=== PATIENT | male | born 1955 | race Caucasian/White ===

== ENCOUNTER 2018-03-12 08:12 | Inpatient (IN) ==
--- NOTE | 2018-03-12 08:44 | PROVIDER DOCUMENTATION ---
HPI-Respiratory General - General Chief Complaint: Shortness of Breath Stated Complaint: sob Time Seen by Provider: 03/12/18 08:23 Allergies/Adverse Reactions: Patient Allergies Allergy/AdvReac Type Severity Reaction Status Date / Time No Known Allergies Allergy Verified 03/12/18 09:16 Home Medications: Home Medication List Medication Instructions Recorded Confirmed Last Taken Type Acetaminophen [Tylenol] 500 mg PO Q4H 09/09/16 09/13/16 Unknown History Alprazolam [Xanax] 0.5 mg PO TID 09/09/16 09/13/16 09/12/16 20:00 History Aspirin EC 325 mg PO DAILY 09/09/16 09/13/16 09/12/16 09:00 History Bupropion HCl [Bupropion HCl Sr] 75 mg PO DAILY 09/09/16 09/13/16 09/12/16 08: 00 History Calcium Citrate/Vitamin D 1 each PO BID 09/09/16 09/13/16 09/12/16 16:00 History [Citracal + D] Carvedilol 6.25 mg PO BID 09/09/16 09/13/16 09/13/16 08:00 History Diltiazem C.d. [Cardizem C.d] 120 mg PO DAILY 09/09/16 09/13/16 09/13/16 08:00 History Divalproex [Depakote] 250 mg PO TID 09/09/16 09/13/16 09/12/16 20:00 History Docusate Sodium 100 mg PO BID 09/09/16 09/13/16 09/12/16 04:00 History Fluticasone/Salmeterol [Advair 1 each IH BID 09/09/16 09/13/16 09/12/16 17:00 History 250-50 Diskus] Furosemide 40 mg PO DAILY 09/09/16 09/13/16 09/12/16 08:00 History Hydrocodone/Acetaminophen [[place] 1 each PO Q6H 09/09/16 09/13/16 Unknown History 5-325 Tablet] Ipratropium/Albuterol Sulfate 3 ml IH BID 09/09/16 09/13/16 09/12/16 08:00 History [Iprat-Albut 0.5-3(2.5) mg/3 ml] Levothyroxine [Synthroid] 50 microgm PO DAILY 09/09/16 09/13/16 09/12/16 04:00 History Multivitamin,Therapeutic [Thera] 1 each PO DAILY 09/09/16 09/13/16 09/12/16 08: 00 History Potassium Chloride E.r. [Micro-K] 10 meq PO BID 09/09/16 09/13/16 09/12/16 16: 00 History Ranitidine [Zantac] 150 mg PO BID 09/09/16 09/13/16 09/12/16 20:00 History Thiamine [Vitamin B-1] 100 mg PO DAILY 09/09/16 09/13/16 09/12/16 09:00 History [place] Tar [T-Gel] 0 ml TP DAILY 09/13/16 09/13/16 09/11/16 History Ketoconazole 2% Cream [Nizoral 2% 1 applicatn TOP DAILY 09/13/16 09/13/16 09:00 History Cream] Triamcinolone 0.1% Oint [Kenalog 1 applicatn TOP DIRECTED 09/13/16 09/13/16 Unknown History 0.1% Ointment] Tuberculin,Purif.prot.deriv. 5 tub ID DIRECTED 09/13/16 09/13/16 09/10/16 15: 00 History [Tubersol] - History of Present Illness-Resp Nature of Presenting Problem: Pt sent to ER by EMS c/o SOB since this am. HP limited due to pt condition Quality of Pain: reports: fullness Severity in ED: reports: moderate Onset/Duration: reports: 1-3 hours ago Timing: reports: still present Exposure: reports: unknown cause Cough Quality/Degree: reports: no cough Episode Frequency: no prior episodes Current Respiratory Medication Therapy: Initiated see nurses note Modifying Factors: improves with: exertion Associated Symptoms: reports: shortness of breath Similar Symptoms Previously?: No Recently seen or treated by another doctor?: No Review of Systems - Adult - REVIEW OF SYSTEMS - ADULT ROS:: unobtainable per condition Constitutional: reports: see HPI Eyes: reports: see HPI Ears, Nose, Mouth & Throat: reports: see HPI Cardiovascular: reports: see HPI Respiratory: reports: see HPI, shortness of breath Gastrointestinal: reports: see HPI Genitourinary: reports: see HPI Musculoskeletal: reports: see HPI Integumentary: reports: see HPI Neurological: reports: see HPI Psychiatric: reports: see HPI Endocrine: reports: see HPI Hematologic/Lymphatic: reports: see HPI Allergic/Immunologic: reports: see HPI All Other Systems: Reviewed and Negative Past History - Adult - PAST MEDICAL HISTORY-ADULT Review of Records: reports: Nursing Assessment Review, Medications Reviewed, Social history reviewed & non-contributory. Major Childhood Illnesses: reports: denies history Cardiovascular: reports: cardiac disease, A-Fib Gastrointestinal: reports: denies history Obstetrical/Gynecological: reports: denies history Genitourinary: reports: denies history Musculoskeletal: reports: denies history Neurological: reports: denies history Psychiatric: reports: denies history Physical Exam-General - PHYSICAL EXAM-ADULT Initial Vital Signs Reviewed: Yes - CONSTITUTIONAL General Appearance: mild distress - EYES Eyes: PERRL/EOMI - HEAD, EARS, NOSE, MOUTH & THROAT HENMT: normocephalic/atraumatic, moist mucous membranes, normal ENT inspection - NECK Neck: non-tender, full range of motion, supple - RESPIRATORY Respiratory: chest non-tender, normal breath sounds, respiratory distress, decreased breath sounds, wheezing - CARDIOVASCULAR Cardiovascular: normal peripheral pulses, no edema, no gallop, tachycardia - GASTROINTESTINAL (ABDOMEN) Abdominal Exam: normal bowel sounds, non tender, soft - LYMPHATIC Lymphatic: no adenopathy - MUSCULOSKELETAL Back Exam: normal inspection, no CVA tenderness, no vertebral tenderness Progress - PLAN OF CARE/RESULTS Progress/Plan/Lab Results: Vital Signs - 8 hr 03/12/18 08:46 03/12/18 09:40 Temperature 98.6 F Pulse Rate 84 130 H Respiratory Rate 23 35 H Blood Pressure 107/78 O2 Sat by Pulse Oximetry 67 L 93 L Laboratory Results - last 24 hr 03/12/18 03/12/18 03/12/18 08:28 08:28 08:28 WBC 10.57 RBC 5.70 Hgb 16.6 Hct 55.8 H MCV 97.9 MCH 29.1 MCHC 29.7 L RDW Std Deviation 15.5 H Plt Count 146 MPV 10.8 H Immature Gran % (Auto) 1.2 H Neut % (Auto) 60.4 Lymph % (Auto) 16.6 L [place] % (Auto) 21.2 H Eos % (Auto) 0.4 Baso % (Auto) 0.2 Immature Gran # (Auto) 0.13 H Neut # (Auto) 6.39 Lymph # (Auto) 1.75 [place] # (Auto) 2.24 H Eos # (Auto) 0.04 Baso # (Auto) 0.02 PT 13.6 INR 0.96 PTT (Actin FS) 32.6 D-Dimer, Quantitative 0.46 Specimen Type Sample Site pH pCO2 pO2 HCO3 Base Excess Oxyhemoglobin ABG O2 Sat (Calculated) ABG O2 Saturation ABG Carboxyhemoglobin ABG Methemoglobin Frankie Test A-a O2 Difference Total Hemoglobin Lactate Blood Gas Modality FiO2 % Inspiratory BiPAP Expiratory BiPAP Sodium 134 L Potassium 6.4 H* Chloride 89 L Carbon Dioxide 33 Anion Gap 12 BUN 26 H Creatinine 1.7 H Estimated GFR/1.73 m2 41 BUN/Creatinine Ratio 15 Glucose 115 H POC Glucose Calculated Osmolality 274 Calcium 10.1 Total Bilirubin 0.48 AST 13 ALT 17 Alkaline Phosphatase 64 Creatine Kinase 32 Troponin T [id number] Pept Total Protein 6.6 Albumin 4.3 Globulin 2.3 Albumin/Globulin Ratio 1.9 Plasma Lactate Urine Source Urine Color Urine Turbidity Urine pH Ur Specific [place] Urine Protein Ur Glucose (Stick) Ur Ketones (Stick) Urine Blood Urine Nitrite Urine Bilirubin Urobilinogen Dipstick Urine Leukocytes Urine WBC (Auto) Urine RBC (Auto) U Epithel Cells (Auto) Urine Bacteria (Auto) Urine Opiates Screen Ur Oxycodone Screen Ur Methadone, Qual Ur Barbiturates Screen Valproic Acid Ur Phencyclidine Scrn Ur Amphetamines Screen U Benzodiazepines Scrn Urine Cocaine Screen U Cannabinoids Screen Plasma/Serum Ethyl Alc 03/12/18 03/12/18 03/12/18 08:28 08:28 08:28 WBC RBC Hgb Hct MCV MCH MCHC RDW Std Deviation Plt Count MPV Immature Gran % (Auto) Neut % (Auto) Lymph % (Auto) [place] % (Auto) Eos % (Auto) Baso % (Auto) Immature Gran # (Auto) Neut # (Auto) Lymph # (Auto) [place] # (Auto) Eos # (Auto) Baso # (Auto) PT INR PTT (Actin FS) D-Dimer, Quantitative Specimen Type Sample Site pH pCO2 pO2 HCO3 Base Excess Oxyhemoglobin ABG O2 Sat (Calculated) ABG O2 Saturation ABG Carboxyhemoglobin ABG Methemoglobin Frankie Test A-a O2 Difference Total Hemoglobin Lactate Blood Gas Modality FiO2 % Inspiratory BiPAP Expiratory BiPAP Sodium Potassium Chloride Carbon Dioxide Anion Gap BUN Creatinine Estimated GFR/1.73 m2 BUN/Creatinine Ratio Glucose POC Glucose Calculated Osmolality Calcium Total Bilirubin AST ALT Alkaline Phosphatase Creatine Kinase Troponin T < 0.010 [id number] Pept 2303 H Total Protein Albumin Globulin Albumin/Globulin Ratio Plasma Lactate < 0.2 L Urine Source Urine Color Urine Turbidity Urine pH Ur Specific [place] Urine Protein Ur Glucose (Stick) Ur Ketones (Stick) Urine Blood Urine Nitrite Urine Bilirubin Urobilinogen Dipstick Urine Leukocytes Urine WBC (Auto) Urine RBC (Auto) U Epithel Cells (Auto) Urine Bacteria (Auto) Urine Opiates Screen Ur Oxycodone Screen Ur Methadone, Qual Ur Barbiturates Screen Valproic Acid Ur Phencyclidine Scrn Ur Amphetamines Screen U Benzodiazepines Scrn Urine Cocaine Screen U Cannabinoids Screen Plasma/Serum Ethyl Alc 03/12/18 03/12/18 03/12/18 08:28 08:28 08:35 WBC RBC Hgb Hct MCV MCH MCHC RDW Std Deviation Plt Count MPV Immature Gran % (Auto) Neut % (Auto) Lymph % (Auto) [place] % (Auto) Eos % (Auto) Baso % (Auto) Immature Gran # (Auto) Neut # (Auto) Lymph # (Auto) [place] # (Auto) Eos # (Auto) Baso # (Auto) PT INR PTT (Actin FS) D-Dimer, Quantitative Specimen Type Sample Site pH pCO2 pO2 HCO3 Base Excess Oxyhemoglobin ABG O2 Sat (Calculated) ABG O2 Saturation ABG Carboxyhemoglobin ABG Methemoglobin Frankie Test A-a O2 Difference Total Hemoglobin Lactate Blood Gas Modality FiO2 % Inspiratory BiPAP Expiratory BiPAP Sodium Potassium Chloride Carbon Dioxide Anion Gap BUN Creatinine Estimated GFR/1.73 m2 BUN/Creatinine Ratio Glucose POC Glucose 119 H Calculated Osmolality Calcium Total Bilirubin AST ALT Alkaline Phosphatase Creatine Kinase Troponin T [id number] Pept Total Protein Albumin Globulin Albumin/Globulin Ratio Plasma Lactate Urine Source Urine Color Urine Turbidity Urine pH Ur Specific [place] Urine Protein Ur Glucose (Stick) Ur Ketones (Stick) Urine Blood Urine Nitrite Urine Bilirubin Urobilinogen Dipstick Urine Leukocytes Urine WBC (Auto) Urine RBC (Auto) U Epithel Cells (Auto) Urine Bacteria (Auto) Urine Opiates Screen Ur Oxycodone Screen Ur Methadone, Qual Ur Barbiturates Screen Valproic Acid 12.40 L Ur Phencyclidine Scrn Ur Amphetamines Screen U Benzodiazepines Scrn Urine Cocaine Screen U Cannabinoids Screen Plasma/Serum Ethyl Alc 03/12/18 03/12/18 03/12/18 08:44 09:10 10:05 WBC RBC Hgb Hct MCV MCH MCHC RDW Std Deviation Plt Count MPV Immature Gran % (Auto) Neut % (Auto) Lymph % (Auto) [place] % (Auto) Eos % (Auto) Baso % (Auto) Immature Gran # (Auto) Neut # (Auto) Lymph # (Auto) [place] # (Auto) Eos # (Auto) Baso # (Auto) PT INR PTT (Actin FS) D-Dimer, Quantitative Specimen Type ARTERIAL ARTERIAL Sample Site L RADIAL L RADIAL pH 7.13 L* 7.38 pCO2 116 H* 48 H pO2 106 H 40 L* HCO3 28.0 H 26.6 H Base Excess 4.1 H 2.7 Oxyhemoglobin 94.4 L 72.9 L* ABG O2 Sat (Calculated) 22.1 10.5 L ABG O2 Saturation 97.6 75.4 L ABG Carboxyhemoglobin 2.50 2.20 ABG Methemoglobin 0.9 1.1 Frankie Test YES YES A-a O2 Difference 462.0 50.0 Total Hemoglobin 16.6 10.2 L Lactate 0.80 0.90 Blood Gas Modality BI PAP ROOM AIR FiO2 % 100.0 21.0 Inspiratory BiPAP 20.0 Expiratory BiPAP 8.0 Sodium Potassium Chloride Carbon Dioxide Anion Gap BUN Creatinine Estimated GFR/1.73 m2 BUN/Creatinine Ratio Glucose POC Glucose Calculated Osmolality Calcium Total Bilirubin AST ALT Alkaline Phosphatase Creatine Kinase Troponin T [id number] Pept Total Protein Albumin Globulin Albumin/Globulin Ratio Plasma Lactate Urine Source CATH Urine Color YELLOW Urine Turbidity CLEAR Urine pH 5.0 Ur Specific [place] 1.021 Urine Protein 50 A Ur Glucose (Stick) NEGATIVE Ur Ketones (Stick) NEGATIVE Urine Blood NEGATIVE Urine Nitrite NEGATIVE Urine Bilirubin NEGATIVE Urobilinogen Dipstick 2 A Urine Leukocytes NEGATIVE Urine WBC (Auto) <10 Urine RBC (Auto) <10 U Epithel Cells (Auto) <10 Urine Bacteria (Auto) NEGATIVE Urine Opiates Screen Ur Oxycodone Screen Ur Methadone, Qual Ur Barbiturates Screen Valproic Acid Ur Phencyclidine Scrn Ur Amphetamines Screen U Benzodiazepines Scrn Urine Cocaine Screen U Cannabinoids Screen Plasma/Serum Ethyl Alc 03/12/18 10:05 WBC RBC Hgb Hct MCV MCH MCHC RDW Std Deviation Plt Count MPV Immature Gran % (Auto) Neut % (Auto) Lymph % (Auto) [place] % (Auto) Eos % (Auto) Baso % (Auto) Immature Gran # (Auto) Neut # (Auto) Lymph # (Auto) [place] # (Auto) Eos # (Auto) Baso # (Auto) PT INR PTT (Actin FS) D-Dimer, Quantitative Specimen Type Sample Site pH pCO2 pO2 HCO3 Base Excess Oxyhemoglobin ABG O2 Sat (Calculated) ABG O2 Saturation ABG Carboxyhemoglobin ABG Methemoglobin Frankie Test A-a O2 Difference Total Hemoglobin Lactate Blood Gas Modality FiO2 % Inspiratory BiPAP Expiratory BiPAP Sodium Potassium Chloride Carbon Dioxide Anion Gap BUN Creatinine Estimated GFR/1.73 m2 BUN/Creatinine Ratio Glucose POC Glucose Calculated Osmolality Calcium Total Bilirubin AST ALT Alkaline Phosphatase Creatine Kinase Troponin T [id number]-H-Coqwfaqbpxo Pept Total Protein Albumin Globulin Albumin/Globulin Ratio Plasma Lactate Urine Source Urine Color Urine Turbidity Urine pH Ur Specific [place] Urine Protein Ur Glucose (Stick) Ur Ketones (Stick) Urine Blood Urine Nitrite Urine Bilirubin Urobilinogen Dipstick Urine Leukocytes Urine WBC (Auto) Urine RBC (Auto) U Epithel Cells (Auto) Urine Bacteria (Auto) Urine Opiates Screen NONE DETECTED Ur Oxycodone Screen NONE DETECTED Ur Methadone, Qual NONE DETECTED Ur Barbiturates Screen NONE DETECTED Valproic Acid Ur Phencyclidine Scrn NONE DETECTED Ur Amphetamines Screen PRESUMPTIVE POSITIVE A U Benzodiazepines Scrn PRESUMPTIVE POSITIVE A Urine Cocaine Screen NONE DETECTED U Cannabinoids Screen NONE DETECTED Plasma/Serum Ethyl Alc Orders Category Date Time Status Cardiac Monitoring DIRECTED Care 03/12/18 08:32 Active [place] Cath Insertion ORDERED Care 03/12/18 10:13 Active IV Insertion ORDERED Care 03/12/18 08:32 Completed Notify MD of + Sepsis Screen NOW Care 03/12/18 08:32 Active Notify Physician As Ordered Care 03/12/18 08:32 Active cxr [CHEST-1 VIEW] [RAD] Stat Exams 03/12/18 08:26 Completed ABG [RESP] Routine Lab 03/12/18 08:44 Completed ABG [RESP] Routine Lab 03/12/18 09:10 Completed ALCOHOL BLOOD Stat Lab 03/12/18 08:28 Completed BLOOD CULTURE [BLDCUL] Stat Lab 03/12/18 08:55 Received CBC WITH ELECTRONIC DIFF [HEME] Stat Lab 03/12/18 08:28 Completed CK PROFILE [SP CHEM] Stat Lab 03/12/18 08:28 Completed COMPREHENSIVE METABOLIC PANEL [CHEM] Stat Lab 03/12/18 08:28 Completed D-DIMER [COAG] Stat Lab 03/12/18 08:28 Completed LACTATE, PLASMA [CHEM] Lab 03/12/18 11:27 Uncollected LACTATE, PLASMA [CHEM] Lab 03/12/18 14:27 Uncollected LACTATE, PLASMA [CHEM] Stat Lab 03/12/18 08:28 Completed PRO B-NATRIURETIC PEPTIDE Stat Lab 03/12/18 08:28 Completed PROTIME WITH INR [COAG] Stat Lab 03/12/18 08:28 Completed PTT [COAG] Stat Lab 03/12/18 08:28 Completed TROPONIN T Stat Lab 03/12/18 08:28 Completed URINALYSIS [URINALYSIS] Stat Lab 03/12/18 10:05 Completed URINE DRUG SCREEN Stat Lab 03/12/18 10:05 Completed VALPROIC ACID [TDM] Stat Lab 03/12/18 08:28 Completed Albuterol 2.5MG/Ipratrop 0.5MG [Duoneb (A & A)] Med 03/12/18 09:25 Discontinued 9 ml INH NOW ONE Calcium Chloride Syringe Med 03/12/18 09:35 Discontinued 1 gm IV NOW ONE Dextrose 50% Syringe [D50w Syringe] Med 03/12/18 09:35 Discontinued 50 ml IV NOW ONE Diltiazem [Cardizem] Med 03/12/18 08:45 Discontinued 20 mg IV NOW ONE Furosemide [Lasix] Med 03/12/18 09:17 Discontinued 80 mg IV NOW ONE Insulin Human Regular [Humulin R] Med 03/12/18 09:35 Discontinued 10 unit IV NOW ONE Naloxone [Narcan] Med 03/12/18 09:19 Discontinued 0.4 mg IV NOW ONE Sodium Bicarbonate 8.4% Med 03/12/18 09:35 Discontinued 50 meq IV NOW ONE Aerosol Treatments Routine Oth 03/12/18 09:25 Completed Aerosol Treatments Stat Oth 03/12/18 09:25 Completed BIPAP Stat Oth 03/12/18 09:17 Active Oxygen Device Stat Oth 03/12/18 08:32 Completed EKG [EKG] Stat Ther 03/12/18 08:28 Ordered EKG [EKG] Stat Ther 03/12/18 10:05 Ordered Transfer/Admit Order [TRANSFER] Routine Transfer 03/12/18 09:54 Ordered Maru LE: Second ABG improved pH as well as pCO2, when I examined patient 09:41 patient would respond to a rub and follow the command to take a deep breath, PERRL, will hold off intubation at this time, per info from ED Doc pt has been admitted. Result Diagrams: 03/12/18 08:28 03/12/18 08:28 - REASSESSMENT Reassessment #1 Time Reassessed: 09:36 Status: improving (Patient seen and examined by me. Case discussed with Dr. Luis at shift change. Patient has CHF/COPD exacerbation, pulmonary edema on CXR. Patient placed on bipap, but with CO2 113, may require intubation. Patient has CHF, given IV lasix. Patient has AFIB with RVR, given IV cardizem. Patient has hyperkalemia, given INSULIN/D50, Sodium Bicarb, calcium, and 3 duonebs.) - XRAY 1 XRAY Study: Chest Impression: Abnormal, See EMR Report (EXAM: CHEST-1 VIEW 03/12/2018 HISTORY: sob TECHNIQUE: AP portable at 0843 COMMENT: There are platelike atelectatic changes present in the lingula and ill-defined opacity in the right lower lobe and possibly the lower portion of the right upper lobe. IMPRESSION: Pulmonary edema and/or pneumonia. Atelectasis in the lingula. Electronically signed by Db Virgen 03/12/2018 8:59 AM 03/12/18 0859 Interpreting Physician: Db Virgen MD Dictated Date/Time: 03/12/18 0858 cc: Anshul Luis MD; Dalton Leon MD) - CONSULTS/PCP/HOSPITALIST Notification #1 *Consult/PCP/Hospitalist*: JAIDA Villarreal Time Discussed: 09:48 (admit to [facility]) Consult Disposition: Will see in ED - CHANGE OF SHIFT REPORT (ED Provider) Report Given and Care Transferred to:: Dr Paez Time of Transfer: 09:00 Items Pending: Labs, XRAY Results Departure - Departure Date of Disposition Decision: 03/12/18 Time of Disposition Decision: 09:48 DIAGNOSIS: COPD with exacerbation, Polypharmacy, Acute hyperkalemia Respiratory failure with hypoxia and hypercapnia Qualifiers: Chronicity: acute Qualified Code(s): J96.01 - Acute respiratory failure with hypoxia Acute exacerbation of CHF (congestive heart failure) Qualifiers: Heart failure type: combined systolic and diastolic Qualified Code(s): I50.43 - Acute on chronic combined systolic (congestive) and diastolic (congestive) heart failure Disposition: ADMITTED INPATIENT 09 Certified Medical Emergency: Emergent Condition: Critical - Critical Care Note This patient required my direct & personal management of CC.: Yes Total Time (mins): 45 Critical Care Statement: This patient required my direct personal management to treat or rule out processes, the absence of which, could potentiallly result in sudden, clinically significant life or limb threatening deterioration. Attestation - Physician/ CLARICE Attestation Patient care was provided by Advanced Practice Provider:: No The physician spent face to face time with patient:: Yes Advanced Practice Provider documentation review:: Supervising physician onsite and consulted in the evaluation and care of this patient. The physician did have a face to face encounter with the patient.
[2018-03-12] MEDS ORDERED: CARDIZEM IV ONE ×2 (08:45→19:12)
[2018-03-12 08:51] LABS: ALLEN TEST YES; BE 4.1 mmoll (-3.0-3.0); BLOOD TYPE ARTERIAL; METHB 0.9 % (0.0-1.5); O2(CT) 22.1 mL/dL (15.0-23.0); O2HB 94.4 % (95.0-99.0); PO2(98.6) 106 mmHg (60-100); SAMPLE BLOOD; SAO2 97.6 % (95.0-100.0); THB 16.6 g/dL (11.5-17.4)
[2018-03-12 08:55] LABS: PCO2(98.6) 116 mmHg (35-45); pH(98.6) 7.13 (7.35-7.45)
[2018-03-12 08:56] LABS: MODALITY BI PAP
--- NOTE | 2018-03-12 09:01 | Diag Imaging Result Doc PS360 ---
EXAM: CHEST-1 VIEW 03/12/2018 HISTORY: sob TECHNIQUE: AP portable at 0843 COMMENT: There are platelike atelectatic changes present in the lingula and ill-defined opacity in the right lower lobe and possibly the lower portion of the right upper lobe. IMPRESSION: Pulmonary edema and/or pneumonia. Atelectasis in the lingula. Electronically signed by Db Virgen 03/12/2018 8:59 AM
[2018-03-12 09:06] LABS: INR 0.96; PROTIME 13.6 Seconds (11.0-16.0); PTT 32.6 Seconds (22.3-41.8)
[2018-03-12 09:09] LABS: D-DIMER 0.46 ug/mLFEU (0.0-0.52)
[2018-03-12] MEDS ORDERED: LASIX IV ONE (09:17)
[2018-03-12] MEDS ORDERED: NARCAN IV ONE (09:19)
[2018-03-12] MEDS ORDERED: DUONEB (A & A) INH ONE (09:25)
[2018-03-12 09:26] LABS: ALB/GLOB RATIO 1.9; ALBUMIN 4.3 g/dL (3.5-5.0); CALCIUM 10.1 mg/dL (8.8-10.2); CREATININE 1.7 mg/dL (0.7-1.2); TOTAL BILIRUBIN 0.48 mg/dL (0.20-1.00); TOTAL PROTEIN 6.6 g/dL (6.3-8.3)
[2018-03-12 09:32] LABS: POTASSIUM 6.4 mmol/L (3.5-5.1)
[2018-03-12 09:35] LABS: BASO# 0.02 X1000 (0.0-0.2); BASO% 0.2 % (0.0-0.8); EOS# 0.04 X1000 (0.0-0.7); EOS% 0.4 % (0.0-10.0); HEMATOCRIT 55.8 % (42.0-52.0); HEMOGLOBIN 16.6 g/dL (14.0-18.0); IMM GRAN# 0.13 X1000 (0.0-0.04); IMM GRAN% 1.2 % (0.0-0.5); LYMPH# 1.75 X1000 (1.2-3.4); LYMPH% 16.6 % (20.5-51.1); MCH 29.1 PG (27-31); MCHC 29.7 g/dL (33-37); MCV 97.9 FL (81-99); MONO# 2.24 X1000 (0.11-0.59); MONO% 21.2 % (1.7-9.3); MPV 10.8 FL (7.4-10.4); NEUT# 6.39 X1000 (1.4-6.5); NEUT% 60.4 % (42.2-75.2); PLT 146 X1000 (130-400); RDW 15.5 % (11.5-14.5); WBC 10.57 X1000 (4.8-10.8)
[2018-03-12] MEDS ORDERED: D50W SYRINGE IV ONE ×2 (09:35→15:12)
[2018-03-12] MEDS ORDERED: HUMULIN R IV ONE ×2 (09:35→15:11)
[2018-03-12] MEDS ORDERED: CALCIUM CHLORIDE SYRINGE IV ONE (09:35)
[2018-03-12] MEDS ORDERED: SODIUM BICARBONATE 8.4% IV ONE (09:35)
[2018-03-12 10:22] LABS: URINE SOURCE CATH
[2018-03-12 10:25] LABS: BILIRUBIN URINE NEGATIVE (NEGATIVE); BLOOD URINE NEGATIVE (NEGATIVE); COLOR YELLOW; GLUCOSE URINE NEGATIVE (NEGATIVE); KETONE URINE NEGATIVE (NEGATIVE); LEUKOCYTES URINE NEGATIVE (NEGATIVE); NITRITE URINE NEGATIVE (NEGATIVE); PROTEIN URINE 50 mg/dL (NEGATIVE); SP GRAVITY URINE 1.021; TURBIDITY URINE CLEAR (CLEAR); UR EPITHELIAL CELLS <10 /HPF (<10); URINE BACTERIA NEGATIVE /HPF; URINE RBC <10 /HPF (<10); URINE WBC <10 /HPF (<10); UROBILINOGEN URINE 2 mg/dL (NORMAL)
[2018-03-12 10:49] LABS: UR AMPHETAMINES QUAL PRESUMPTIVE POSITIVE (NONE DETECT); UR BARBITUATES QUAL NONE DETECTED (NONE DETECT); UR BENZODIAZEPIN QUAL PRESUMPTIVE POSITIVE (NONE DETECT); UR CANNABINOIDS QUAL NONE DETECTED (NONE DETECT); UR COCAINE QUAL NONE DETECTED (NONE DETECT); UR METHADONE QUAL NONE DETECTED (NONE DETECT); UR OPIATES QUAL NONE DETECTED (NONE DETECT); UR OXYCODONE QUAL NONE DETECTED (NONE DETECT); UR PCP QUAL NONE DETECTED (NONE DETECT)
[2018-03-12] MEDS ORDERED: DUONEB (A & A) INH PRN (11:06)
[2018-03-12] MEDS ORDERED: LEVAQUIN 750 MG/D5W 750 MG/150 ML IVPB IV SCH (11:06)
[2018-03-12] MEDS ORDERED: NEO-SYNEPHRINE 50 MG in NS 250 ML IV SCH (11:15)
[2018-03-12] MEDS: DUONEB (A & A) INH SCH ×4 (11:45→23:30)
[2018-03-12] MEDS ORDERED: VANCOMYCIN IV PER PHARMACY MISC SCH (11:45)
[2018-03-12] MEDS ORDERED: KLOR-CON PO ONE (12:16)
[2018-03-12] MEDS ORDERED: ROMAZICON IV ONE (12:17)
[2018-03-12] MEDS: HEPARIN SUBQ SCH (12:22)
[2018-03-12 12:36] LABS: ALLEN TEST YES; BE 3.3 mmoll (-3.0-3.0); BLOOD TYPE ARTERIAL; HCO3-(ACT) 27.2 mmoll (20.0-26.0); METHB 0.8 % (0.0-1.5); O2HB 90.1 % (95.0-99.0); PO2(98.6) 72 mmHg (60-100); SAMPLE BLOOD; SAO2 93.2 % (95.0-100.0); THB 16.6 g/dL (11.5-17.4)
[2018-03-12 12:39] LABS: PCO2(98.6) 113 mmHg (35-45); pH(98.6) 7.13 (7.35-7.45)
[2018-03-12 12:40] LABS: MODALITY BI PAP
--- NOTE | 2018-03-12 12:51 | HISTORY AND PHYSICAL ---
PRIMARY CARE PHYSICIAN: Dr. Leon at [facility]. CHIEF COMPLAINT: Per medical record report: Lethargy, increased temperature, and decreased O2 saturation. Temperature at the [facility] was 99, O2 saturation was 44%. HISTORY OF PRESENT ILLNESS: Mr. Odonnell is a 63-year-old male. His medical history is obtained from [facility], EMR. 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 According to [facility] records, the patient had a temperature 99.9 degrees, O2 saturation 44%, his heart rate was 122, respirations were 28, blood pressure was 118/52. Also per the records, the patient is always confused. He is a wanderer, needs help with dressing as well as to go to the bathroom, needs help with bathing. The patient was brought in by EMS. He was on 3 L nasal cannula. His O2 saturation was 67%. He was immediately placed on BiPAP. His ABGs were acidotic, 7.13. His CO2 was 116. He was hyperkalemic at 6.4 with an acute kidney injury with a BUN of 26 and creatinine 1.7 and elevated proBNP. Urinalysis was negative. Valproic acid level was 12.40. Positive for amphetamines and benzodiazepines. Urine was negative for bacteria. We will admit him to the ICU with a pulmonology consult. We are rechecking ABGs for possible intubation. The patient remains obtunded, minimally responsive to painful stimuli. He does not follow any commands. No family at the bedside. Blood pressures have fallen into the 60s, was started on Clovis- Synephrine drip. He has not yet received his IV Lasix and is on hold until his blood pressure can improve. He was also found to be in atrial fibrillation with RVR. He was given 1 dose of IV Cardizem. We will consult Cardiology as well. REVIEW OF SYSTEMS: A 14 point review of systems hard to obtain secondary to patient's condition. PAST MEDICAL HISTORY: Please see HPI. PAST SURGICAL HISTORY: He has had excision of squamous cell cancer by Dr. Tran in 2017 to his right biceps and left scapula. Other history unknown. FAMILY HISTORY: Unknown. SOCIAL HISTORY: Patient lives at [facility]. Appears to be in long-term care. In his [facility] paperwork, responsible libertarian is Mary Snowden, phone number of [phone]. CODE STATUS: DNR level 1. We will confirm this with family. HOME MEDICATIONS: Per [facility] report: 1. Levothyroxine 75 mcg p.o. daily. 2. Thiamin 100 mg p.o. daily. 3. Aspirin 325 mg tablet p.o. daily for atrial fibrillation. 4. Ketoconazole 2% cream to face if scaling is present. 5. Ferrous sulfate 325 mg p.o. daily. 6. Lisinopril 10 mg p.o. daily. 7. vitamin p.o. every day secondary to macular degeneration. 8. Systolic heart failure, Lasix 60 mg daily. 9. Bupropion 75 mg daily. 10. Prednisone 5 mg 1 tablet daily with two 1 mg tablets, equal a total of 7 mg for emphysema. 11. Diltiazem CD 120 mg daily for atrial flutter. 12. Citracal, vitamin D plus magnesium by mouth twice daily. 13. Advair Diskus 1 puff twice daily. 14. Depakote 225 mg tablet by mouth at bedtime. 15. Melatonin 3 mg at bedtime for sleep. 16. Carvedilol 6.25 mg tablet twice daily. 17. Potassium chloride 10 mEq p.o. by mouth 3 times a day. 18. Ipratropium albuterol inhaler 4 times a day. 19. Xanax 0.5 mg 1 by mouth p.o. 3 times a day for restlessness and agitation. 20. GERD. The patient is on Zantac 150 mg p.o. daily. 21. Tylenol. 22. Selsun Blue shampoo. PHYSICAL EXAMINATION: VITAL SIGNS: Temperature 98.6 degrees, heart rate 130, respirations 35, O2 is 93% on BiPAP, blood pressure 107/78. GENERAL: Mr. Odonnell is lying on the stretcher on BiPAP. He is obtunded. He does moan to painful stimuli. He does not follow commands, answer any questions. HEENT: Atraumatic, normocephalic. PERRL. NECK: Thick, unable to assess JVD. CARDIOVASCULAR: Irregular rhythm. Could not appreciate any murmurs, gallops, or rubs. RESPIRATORY: Lung sounds were decreased throughout all lung pierce. GASTROINTESTINAL: Soft, nontender, nondistended. Positive bowel sounds x4 quadrants. EXTREMITIES: Dry and flaky, somewhat red. He does have an open, scabbed over wound to his left lower extremity. NEUROLOGIC: The patient is obtunded. He does minimally respond to painful stimuli. DIAGNOSTIC DATA: Chest x-ray shows pulmonary edema and/or pneumonia, atelectasis in the lingula. LABORATORY DATA: White count 10, hemoglobin and hematocrit of 16 and 55, platelet count 146,000. Initial ABG showed a pH of 7.13, pCO2 of 116, pO2 of 106, bicarb 28, base excess of 4.1, O2 saturation 97%. Sodium 134, potassium 6.4, BUN 26, creatinine 1.7, blood glucose is 115. Troponin less than 0.010. ProBNP 2303. Plasma lactate was less than 0.2. Urinalysis was negative. Valproic acid 12.40. Positive for amphetamines, positive for benzodiazepine. ASSESSMENT AND PLAN: 1. Acute hypercarbic hypoxic respiratory failure. Patient was placed on BiPAP. We are awaiting repeat ABG. Will consult Pulmonology. Continue with bronchodilators. 2. Possible mix of metabolic and toxic encephalopathy. We will continue to hold any sedating medications. We will continue with his aggressive pulmonary toilet. Continue with BiPAP. 3. Congestive heart failure, presumed systolic. I will check an echocardiogram. We will give the IV Lasix when his blood pressure has improved. 4. Hypotension. Will start Clovis-Synephrine. 5. Questionable pneumonia on chest x-ray. We will go ahead and initiate IV antibiotics. Will cover with broad-spectrum since the patient is a resident at [facility]. 6. Hyperkalemia. He is being given treatment per protocol. 7. Acute kidney injury. We will continue with IV fluids cautiously, hold any nephrotoxic drugs, and dose appropriately. Pain. 8. The patient has a scabbed-over wound to his left lower extremity with bilateral lower extremity redness. We will continue with antibiotic for probable cellulitis. Further recommendation to follow physician evaluation, laboratory, and diagnostic data. addendum; SPOKE WITH MARY SNOWDEN PATIENT'S SPONSOR, HE IS A DNR1. WE WILL CONSULT PALLATIVE CARE FOR TOMORROW FOR GOC. Dictated by JAIDA Walsh for Herrera Peña MD cc: MD Dr. Rika Youngblood MD Patient seen and evaluated by me. He is presenting with altered mental state related to CO2 retention. I agree with the assessment and plan of the MEMBER SERVICE REPRESENTATIVE. Dr. Peña. [facility]
[2018-03-12] MEDS: PROTONIX IV SCH (13:53)
[2018-03-12] MEDS: ROCEPHIN 1 GM in NS 50 ML IV SCH (13:54)
[2018-03-12 14:23] LABS: BASO# 0.11 X1000 (0.0-0.2); BASO% 0.9 % (0.0-0.8); EOS# 0.04 X1000 (0.0-0.7); EOS% 0.3 % (0.0-10.0); HEMATOCRIT 57.3 % (42.0-52.0); HEMOGLOBIN 17.2 g/dL (14.0-18.0); IMM GRAN# 0.16 X1000 (0.0-0.04); IMM GRAN% 1.3 % (0.0-0.5); LYMPH# 1.58 X1000 (1.2-3.4); MCH 30.3 PG (27-31); MCV 101.1 FL (81-99); MONO# 3.26 X1000 (0.11-0.59); MONO% 26.8 % (1.7-9.3); MPV 10.9 FL (7.4-10.4); NEUT# 7.03 X1000 (1.4-6.5); NEUT% 57.7 % (42.2-75.2); PLT 138 X1000 (130-400); RBC 5.67 XMIL (4.7-6.1); WBC 12.18 X1000 (4.8-10.8)
[2018-03-12 14:37] LABS: T4 7.25 ug/dL (4.60-12.00); TSH 0.85 uIUmL (0.27-4.20)
[2018-03-12 14:38] LABS: LYMPHS 12 % (21-51); MONO 19 % (1-9); SEGS 69 % (42-75)
[2018-03-12 14:40] LABS: CREATININE 1.8 mg/dL (0.7-1.2); MAGNESIUM 2.1 mg/dL (1.5-2.7); PHOSPHORUS 6.5 mg/dL (2.7-4.5)
[2018-03-12] MEDS ORDERED: ALBUTEROL 0.5% INH CONC FOR HYPERKALEMIA INH ONE (15:06)
[2018-03-12] MEDS ORDERED: CALCIUM GLUCONATE IV PUSH ONE (15:11)
[2018-03-12] MEDS ORDERED: KAYEXALATE PR ONE ×2 (15:12→15:30)
[2018-03-12] MEDS: ZOSYN 2.25 GM in NS 50 ML IV SCH ×2 (16:31→23:30)
[2018-03-12] MEDS ORDERED: VANCOMYCIN 2,250 MG in NS 500 ML IV ONE (17:00)
[2018-03-12] MEDS ORDERED: LOPRESSOR IV ONE (17:04)
[2018-03-12] MEDS ORDERED: CARDIZEM 100 MG/NS 100 MG/100 ML IVPB IV SCH (19:15)
[2018-03-12 19:39] LABS: CK INDEX 0.8 (0.0-2.5); CK-MB 3.51 ng/mL (0.0-5.0)
--- NOTE | 2018-03-12 19:40 | CONSULTATION ---
DATE OF CONSULTATION: 03/12/2018 IMPRESSION: 1. Atrial fibrillation with rapid ventricular rate. Atrial fibrillation is reportedly chronic. Suspect elevated heart rate related to acute illness. 2. Hypercapnic/hypoxemic respiratory failure. I suspect this is largely related to severe COPD exacerbation. 3. Acute on chronic heart failure. 4. Status post previous cerebrovascular accident with left-sided weakness. 5. Encephalopathy with history of dementia. 6. Hypertension. 7. Patient is do not resuscitate level 1. RECOMMENDATIONS: 1. Initiate IV metoprolol on an as needed basis to prevent excessive tachycardia. 2. Start low-dose IV Cardizem. 3. Diuresis as you are doing. 4. Supportive care with BiPAP to provide pulmonary support within limits of patient's wishes. The patient is a DNR level 1. 5. His prognosis appears to be poor. HISTORY: This 63-year-old white male with past history of atrial fibrillation, hypertension, congestive heart failure, severe COPD with pulmonary fibrosis, dementia and previous cerebrovascular accident resulting in left-sided weakness was brought from the [facility] in respiratory failure. He is very lethargic and unable to give any history. He has been found to have severe hypercapnia with respiratory acidosis as well as hypoxemia. As he is he is a DNR he is being treated with BiPAP for pulmonary support. Pulmonary edema is also suggested and diuresis has been initiated. Regarding his atrial fibrillation, he has received some intravenous Cardizem but is not currently on a drip. He has also been administered some intravenous metoprolol as needed. He has been a DNR level 1 prior to his present admission and this was on his record at the detention. PAST MEDICAL HISTORY: 1. Atrial fibrillation. 2. Congestive heart failure. 3. Severe COPD with pulmonary fibrosis. 4. Dementia. 5. Status post cerebrovascular accident with left-sided weakness. 6. Hypertension. 7. Ischemic heart disease. 8. Squamous cell carcinoma in involving the skin of the right upper limb and left shoulder which was subsequently removed. ALLERGIES: No known drug allergies. MEDICATIONS PRIOR TO ADMISSION: As listed. SOCIAL HISTORY: He has been a resident for sometime at [facility]. He does not smoke. There is a past history of significant alcohol use. FAMILY HISTORY: Not available. REVIEW OF SYSTEMS: Not obtainable given patient's encephalopathy. PHYSICAL EXAMINATION: General: This is a overweight, older middle-aged male, in no obvious distress who is lethargic on BiPAP. He appears older than stated age. Vital signs: Blood pressure 141/93, heart rate 118 with ECG monitor showing atrial fibrillation. Oxygen saturation 95%. HEENT: Mucous membranes are dry. Neck: Supple without discernible jugular distention. There are no carotid bruits. Chest: Auscultation chest reveals diminished air movement bilaterally. Coarse breath sounds demonstrated bilaterally. Cardiac Exam: Reveals an irregular rate and rhythm without appreciable murmur or gallop. Abdomen: Soft. Bowel sounds audible. Extremities: Demonstrate mild edema. Neurologic: Reveals patient to be unresponsive to verbal or physical stimuli. DATA: ECG shows atrial fibrillation with rapid ventricular rate. LABORATORY DATA: Includes a white blood cell count 12.18, hematocrit 57.3, hemoglobin 17.2, platelet count 138,000. Pro time 13.6, INR 0.96. PTT 32.6. Arterial blood gas with a pH of 7.13, pCO2 of 113, PO2 of 72, bicarb 27.2 on BiPAP with FiO2 of 100%. Sodium 135, potassium 6.0, chloride 91, carbon dioxide 27, BUN 20, creatinine 1.8, glucose 103. Troponin T less than 0.01. Pro-B natriuretic peptide level 2303. cc: Thierry Taylor MD
--- NOTE | 2018-03-12 19:59 | CONSULTATION ---
DATE OF CONSULTATION: 03/12/2018 CHIEF COMPLAINT: Lethargy. HISTORY OF PRESENT ILLNESS: This is a 63-year-old male who resides at [facility], patient was brought to the emergency department via ambulance service today. During assessment patient is unable to be aroused, he is on BiPAP therapy. X- ray revealed pulmonary edema and/or pneumonia. PAST MEDICAL HISTORY: Per shelter records atrial fibrillation, unspecified encephalopathy, hemiplegia, history of AL, iron deficiency anemia, sleep disorder, pulmonary fibrosis, CHF, emphysema, squamous cell carcinoma and GERD. FAMILY HISTORY: Unknown. HOME MEDICATIONS: See reconciliation list. SOCIAL HISTORY: The patient lives at [facility]. REVIEW OF SYSTEMS: ASSESSMENT: General: This is a 63-year-old male arousable BiPAP in place. Tachycardic. Vital Signs: Pulse rate 123, respiratory rate 26, blood pressure 134/94, O2 saturation 92. HEENT: Head is atraumatic, normocephalic. PERRLA noted. Neck: Is thick and supple. Cardiovascular: Irregular rhythm. No gallops rubs or murmurs noted. Respiratory: Lung sounds diminished throughout all lung pierce. GI: Soft, distended, bowel sounds present x4 quadrants. Neurologic: Patient is obtunded, it is minimally respond to painful stimuli. DIAGNOSTIC DATA: X-ray revealed pulmonary edema and/or pneumonia, atelectasis in the lingula. LABORATORY DATA: White blood cells 12.18, red blood cells 5.67, hemoglobin 17.2, hematocrit 57.3, PT 13.6, INR 0.96, PTT 32.6, D-dimer 0.46, pH 7.13, pCO2 113, PO2 72, HC03 27.2, base excess 3.3, oxyhemoglobin 90.1, sodium 135, potassium 6.0, chloride 91, BUN 28, creatinine 1.8, glucose 103, calcium 11.0, phosphorus is 6.5, pro-BNP 2303. ASSESSMENT AND PLAN: 1. Acute hypercapnic respiratory failure. Continue BiPAP and will continue to monitor blood gases. 2. Probable pneumonia. Continue antibiotics bronchodilators as prescribed. 3. Hypokalemia. Continue treatment protocol and continue to monitor. 4. Continue GI prophylaxis with Protonix IV. Thank you for the courtesy of this consult. Dictated by JAIDA Mclain for Solange Meléndez MD cc: JAIDA Mclain MD [facility]
[2018-03-12] MEDS: LASIX IV SCH (21:00)
[2018-03-13] MEDS: HEPARIN SUBQ SCH ×2 (00:22→11:14)
[2018-03-13] MEDS ORDERED: ATIVAN IV ONE (00:43)
[2018-03-13] MEDS ORDERED: ATIVAN ONE (00:48)
[2018-03-13 01:55] LABS: UR CREAT RANDOM 109.3 mg/dL (14-26); UR PROT RANDOM 41.7 mg/dL
[2018-03-13] MEDS: DUONEB (A & A) INH SCH ×6 (03:30→23:00)
[2018-03-13 04:10] LABS: CK INDEX 0.4 (0.0-2.5); CK-MB 6.14 ng/mL (0.0-5.0)
[2018-03-13 04:27] LABS: ALLEN TEST YES; BE 9.2 mmoll (-3.0-3.0); BLOOD TYPE ARTERIAL; HCO3-(ACT) 31.9 mmoll (20.0-26.0); O2(CT) 21.4 mL/dL (15.0-23.0); O2HB 93.1 % (95.0-99.0); PO2(98.6) 68 mmHg (60-100); SAMPLE BLOOD; SAO2 95.8 % (95.0-100.0); THB 16.4 g/dL (11.5-17.4)
[2018-03-13] MEDS: ZOSYN 2.25 GM in NS 50 ML IV SCH ×3 (04:47→21:26)
[2018-03-13 04:49] LABS: MODALITY BI PAP; PCO2(98.6) 81 mmHg (35-45)
--- NOTE | 2018-03-13 06:06 | Diag Imaging Result Doc PS360 ---
EXAM: CHEST-PORTABLE HISTORY: chf/resp failure TECHNIQUE: Chest single view COMPARISON: 03/12/2018 FINDINGS: The lungs are well expanded. The heart is not enlarged. The vessels are distended. There are no infiltrates. No effusion identified. IMPRESSION: Persistent pulmonary edema. Electronically signed by Noel Caldera 03/13/2018 6:03 AM
[2018-03-13 06:31] LABS: AGAP 12; ALBUMIN 3.5 g/dL (3.5-5.0); BUN 23 mg/dL (8-22); CALCIUM 9.8 mg/dL (8.8-10.2); CHLORIDE 94 mmol/L (98-107); COSMO 289; ESTIMATED GFR > 60; GLUCOSE 99 mg/dL (70-104); PHOSPHORUS 3.8 mg/dL (2.7-4.5); POTASSIUM 5.8 mmol/L (3.5-5.1); SODIUM 143 mmol/L (136-145); TCO2 37 mmol/L (25-35)
[2018-03-13 06:33] LABS: AGAP 12; BUN 22 mg/dL (8-22); CALCIUM 9.8 mg/dL (8.8-10.2); CHLORIDE 93 mmol/L (98-107); COSMO 285; CREATININE 1.1 mg/dL (0.7-1.2); ESTIMATED GFR > 60; GLUCOSE 101 mg/dL (70-104); POTASSIUM 5.6 mmol/L (3.5-5.1); SODIUM 141 mmol/L (136-145); TCO2 36 mmol/L (25-35)
--- NOTE | 2018-03-13 07:30 | EKG Report ---
Test Performed on : 03/13/2018 06:44:48 AM Test Reason : Heart Failure Admission Blood Pressure : / mmHG Vent. Rate : 114 BPM Atrial Rate : 053 BPM P-R Int : 000 ms QRS Dur : 072 ms QT Int : 272 ms P-R-T Axes : 000 049 078 degrees QTc Int : 374 ms Atrial fibrillation. with rapid ventricular response. Abnormal ECG When compared with ECG of 12-MAR-2018 08:23, (Unconfirmed) Nonspecific T wave abnormality now evident in Lateral leads Confirmed by Waldo EL, Jey Schneider ([id number]) on 03/13/2018 3:56:23 PM
--- NOTE | 2018-03-13 08:23 | EKG Report ---
Test Performed on : 03/12/2018 08:23:25 AM Test Reason : sob Blood Pressure : / mmHG Vent. Rate : 111 BPM Atrial Rate : 108 BPM P-R Int : 000 ms QRS Dur : 070 ms QT Int : 286 ms P-R-T Axes : 000 099 060 degrees QTc Int : 388 ms Atrial fibrillation. with rapid ventricular response. Rightward axis Low voltage QRS Abnormal ECG When compared with ECG of 13-SEP-2016 09:04, Nonspecific T wave abnormality no longer evident in Inferior leads Nonspecific T wave abnormality no longer evident in Lateral leads Unconfirmed Result
--- NOTE | 2018-03-13 09:06 | ECHO REPORT ---
ORDER DATE: 03/12/2018 SUMMARY: 1. Very technically difficult study for interpretation due to very limited acoustic window quality. Despite intravenous echo contrast agent, Definity, utilized to enhance endocardial definition, stage remained technically difficult. 2. Aortic valve is without gross structural abnormality. Mitral and tricuspid valves are without gross structural abnormality. Pulmonic valve is without gross structural abnormality. Pulmonic valve was not seen. Aortic root is grossly normal in size. 3. Grossly normal left ventricular chamber size suggested. Estimated left ventricular ejection fraction appears to be at least 55%. No obvious wall motion abnormality can be appreciated. Left atrium is grossly normal in size. Right atrium is not well imaged. The right ventricle appears at least borderline enlarged. 4. No pericardial effusion. 5. Appearance of inferior vena cava suggests normal central venous pressure. 6. Atrial fibrillation during study with heart rate 110 to 120 beats per minute. cc: Thierry Taylor MD
--- NOTE | 2018-03-13 09:56 | Diag Imaging Result Doc PS360 ---
US RENAL 2 (RETROPER) COMPLETE - 03/13/2018 INDICATION: decreased renal function TECHNIQUE: COMPARISON: None FINDINGS: The kidneys are normal. The urinary bladder is decompressed by a Guillen catheter. There is no mass or cyst. No hydronephrosis. The right kidney measures 9.9 x 5.1 x 5 cm. The left kidney measures 9.6 x 5 x 4.9 cm. IMPRESSION: Negative exam. Electronically signed by Nikita Finch 03/13/2018 9:54 AM
[2018-03-13] MEDS: LASIX IV SCH ×2 (11:20→21:26)
[2018-03-13] MEDS: ROCEPHIN 1 GM in NS 50 ML IV SCH (11:23)
[2018-03-13] MEDS ORDERED: TYLENOL PR PRN (13:32)
[2018-03-13] MEDS ORDERED: SODIUM BICARBONATE 8.4% IV PUSH ONE (13:33)
[2018-03-13] MEDS ORDERED: CALCIUM GLUCONATE 1 GM in NS 50 ML IV ONE (13:33)
[2018-03-13] MEDS ORDERED: D50W SYRINGE IV ONE (13:34)
[2018-03-13] MEDS ORDERED: HUMULIN R IV ONE (13:35)
[2018-03-13] MEDS: PROTONIX IV SCH (13:44)
[2018-03-13] MEDS: MYCOSTATIN POWDER TOP SCH ×2 (13:48→21:27)
--- NOTE | 2018-03-13 14:18 | PROGRESS NOTE ---
DATE: 03/13/2018 SUBJECTIVE: The patient resting comfortably in bed. He does have an oxygen mask in place. OBJECTIVE: Vital Signs: Pulse 123, respiratory rate 31, blood pressure 132/75, and oxygen saturation is 91%. HEENT: Atraumatic, normocephalic. Cardiovascular: S1, S2. Respiratory: No rales or rhonchi noted. Abdomen: Full. Nontender. No masses felt. Extremities: Erythematous changes in both lower extremities. Central nervous system: The patient is awake and probably confused. No obvious focal deficit noted. LABORATORY: ABG 7.3/81/68/95.8 percent. Sodium is 143. Potassium 5.8, chloride 94, bicarb 37, BUN is 23, and creatinine is 1.0. X-ray of chest shows evidence of pulmonary edema. No infiltrates. ASSESSMENT AND PLAN: 1. Acute hypercapnic respiratory failure. Maintain patient on BiPAP. Follow up on patient's clinical progression including chest x-ray as well as arterial blood gases. 2. Pulmonary edema. We will maintain patient on diuretics. Monitor intakes and outputs, as well as daily weights. Follow up on echo of the heart. 3. Hyperkalemia. We will repeat cocktail of sodium bicarbonate, calcium gluconate, along with D50 and also regular insulin. Follow up on potassium level. 4. Acute kidney injury. This seemed to have improved. We will continue to follow up on patient's renal function and avoid nephrotoxic agents. 5. Bilateral lower extremity cellulitis. Obtain wound culture. Maintain patient on antibiotics. 6. Probable pneumonia. I do not see any evidence of pneumonia on the patient's chest x-ray report. 7. Deep vein thrombosis prophylaxis. Lovenox. 8. Gastrointestinal prophylaxis. Proton pump inhibitor. cc: Herrera Peña MD
[2018-03-13] MEDS ORDERED: LOVENOX SUBQ SCH (14:30)
--- NOTE | 2018-03-13 14:37 | PROGRESS NOTE ---
DATE: 03/13/2018 SUBJECTIVE: Patient is more responsive this morning and making better respiratory effort. He responds to verbal inquiries with responses that are somewhat difficult to understand. OBJECTIVE: Vital Signs: Blood pressure 139/85, heart rate 110 and irregular with ECG monitor showing atrial fibrillation, oxygen saturation 96% on BiPAP. Chest: Auscultation of the chest reveals better air movement this morning. Chest is clear to auscultation anteriorly. Cardiac: Reveals an irregular rate and rhythm without appreciable murmur or gallop. There is mild peripheral edema. IMAGING: Echocardiography is very difficult for interpretation but indicates grossly normal left ventricular ejection fraction. There is subjective enlarged on the right ventricle. LABORATORY DATA: From this morning includes sodium 143, potassium 5.8, chloride 94, carbon dioxide 37, BUN 23, creatinine 1.0, glucose 99. Follow-up troponin less than 0.01. Arterial blood gas with a pH of 7.3, pCO2 of 81, PO2 of 68 on BiPAP with 100% oxygen. IMPRESSIONS: 1. Atrial fibrillation with moderate tachycardia. Patient apparently has chronic atrial fibrillation. Suspect heart rate elevated due to acute illness. Heart rate better controlled. 2. Hypercapnic/hypoxemic respiratory failure. 3. Acute on chronic congestive heart failure with preserved left ventricular ejection fraction. Suspect a great deal of this may be related to acute on chronic right-sided heart failure. 4. Status post previous cerebrovascular accident with left-sided weakness. 5. Encephalopathy with history of dementia. 6. Hypertension. 7. Patient is do not resuscitate level 1. RECOMMENDATIONS: 1. Continue low-dose IV Cardizem as tolerated. 2. Continue p.r.n. IV metoprolol. 3. Continue diuresis and supportive care. cc: Thierry Taylor MD
[2018-03-13] MEDS: LEVAQUIN 500 MG/D5W 500 MG/100 ML IVPB IV SCH (14:47)
[2018-03-13] MEDS: LOVENOX SUBQ SCH (15:01)
[2018-03-13] MEDS ORDERED: VANCOMYCIN 2 GM in NS 500 ML IV SCH (18:00)
--- NOTE | 2018-03-13 19:33 | NEPHROLOGY CONSULTATION ---
DATE: 03/13/2018 DATE OF CONSULT: 03/13/2018. REASON FOR ADMISSION: Increased lethargy, altered mental status, with decreased oxygenation. REASON FOR CONSULT: Acute kidney injury. CONSULTING PHYSICIAN: Dr. Peña per Cherelle Marcial NP. HISTORY OF PRESENT ILLNESS: Mr. Odonnell is a 63-year-old white male who is currently a resident of [facility]. His sister is at his bedside and states that her brother was called yesterday morning stating that he had altered mental status. He has unspecified encephalopathy with early onset of dementia. He is hemiplegic, affecting the left and nondominant side. 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 The patient is mostly bed ridden according to the family member. According to the [facility] records, it states that his temperature yesterday morning was 99.9, O2 sats were 44%. His heart rate was 122, blood pressure was stable at 118/52. He was transferred to [facility] Emergency Department per the EMS. En route, they had him on 3 L nasal cannula. Immediately he was placed on BiPAP. In the emergency room, he was hyperkalemic with a potassium of 6.4 and acute kidney injury, BUN of 26 and a creatinine of 1.7, with an elevated BNP. The patient has a valproic acid level of 12.4. His urinalysis was positive for amphetamines and benzodiazepines. Negative for bacteria. Due to these findings , they are attempting to admit the patient either to ICU or CIC. He has a pulmonology consult. Remains on BiPAP. He is unable to give any further records. Family member at the bedside is unable to give any further records for the review of systems. PAST MEDICAL HISTORY: According to 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 He has a sleep disorder, history of falls, hypothyroidism, congestive heart failure, emphysema, pulmonary fibrosis, systolic congestive heart failure, GERD, constipation. 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 The patient is mostly bed bound. PAST SURGICAL HISTORY: Excision of squamous cell cancer per Dr. Tran in 2017 to his right bicep and left scapula. Other further history is unknown, not stated in his previous charts. SOCIAL HISTORY: Patient is a resident of [facility] for long-term care. Code status is noted as a DNR level 1. CURRENT ALLERGIES: Listed as no known drug allergies. HOME MEDICATIONS: Have been reconciled for levothyroxine, thiamin, aspirin daily, ketoconazole for face, ferrous sulfate, lisinopril, vitamins, systolic heart failure with Lasix, bupropion, prednisone, diltiazem CD, vitamin D3 plus magnesium, Advair Diskus, Depakote, melatonin, carvedilol, potassium chloride, albuterol inhaler, Xanax, Zantac, Tylenol, and Selsun Blue. VITAL SIGNS: Patient's last temperature 98.6, blood pressure 144/105, heart rate 121, respirations are 20, he is on 100% BiPAP. Last recorded saturation is 93%. He has a Guillen catheter in place with urine noted out. LABORATORY DATA: Sodium 141, potassium 5.6, chloride 93, CO2 36, BUN 22, creatinine 1.1, glucose 101, anion gap of 12, calcium 9.8, phosphorus 3.8, albumin 3.5, previous hemoglobin 11.2 on admission yesterday. ABGs: PH 7.3, CO2 81, PO2 68, bicarb 31.9 on 100% BiPAP. Renal ultrasound indicates right kidney measuring 9.9, left 9.6. No hydronephrosis or mass. Urine electrolytes indicate a FENa score of 0.19%. He currently has normal saline infusing. PHYSICAL EXAMINATION: General: This is a 63-year-old male who appears older than his stated age. He appears chronically ill. He is in no acute distress. Skin: Warm and dry. HEENT: Normocephalic, atraumatic. Conjunctiva is pale pink. He has MELY, though sluggish. Neck: Supple, thick. Unable to assess JVD. Cardiovascular: Irregular rate and rhythm. No murmur or gallop appreciated. Lungs: Clear to auscultation bilaterally. Equal excursion. He remains on 100% BiPAP. Unable to determine other lung sounds. Shallow inspiratory effort noted. Abdomen: Large, obese soft, nontender. Positive bowel sounds. Genitourinary: Guillen catheter is in place. He has adequate urine out at this time. Extremities: Somewhat reddened. There are dry. Poor skin turgor. He has a scab wound noted to the left lower extremity. Neurologic : The patient is obtunded, does not respond, with minimal response except to painful stimuli. ASSESSMENT AND PLAN: 1. Acute kidney injury. This is resolved. During his hospital stay he has had adequate urine output in his Guillen bag. BUN of 22, with a creatinine of 1.9. He has an IV fluid that continues to infuse which is appropriate for his low FENa score. 2. Acute hypercarbic hypoxic respiratory failure. Patient remains on 100% BiPAP. He is a DNR level 1. Pulmonology has been consulted. 3. Heart failure. The patient has had aggressive pulmonary toiletry. He has been given Lasix IV x 1. This is to be followed by the primary care team and Pulmonology. 4. Electrolytes and acid-base balance. Patient was hyperkalemic. This was appropriately treated with a potassium now down to 5.6. 5. Anemia. This is close to target. I would like to thank you for allowing us to consult with this patient. Dictated by JAIDA Guillen for Luke Teresa MD Face to face encounter, data reviewed, discussed with Gretchen Trujillo on 03/13/18. I agree with the above assessment and plan of care. cc: JAIDA Guillen MD [facility]
[2018-03-14] MEDS: ZOSYN 2.25 GM in NS 50 ML IV SCH ×3 (02:50→14:49)
[2018-03-14] MEDS: DUONEB (A & A) INH SCH ×6 (02:53→23:46)
[2018-03-14] MEDS: LOVENOX SUBQ SCH ×2 (02:59→15:13)
[2018-03-14 03:52] LABS: ALLEN TEST YES; BE 22.6 mmoll (-3.0-3.0); BLOOD TYPE ARTERIAL; HCO3-(ACT) 42.3 mmoll (20.0-26.0); METHB 1.3 % (0.0-1.5); O2(CT) 20.2 mL/dL (15.0-23.0); O2HB 91.2 % (95.0-99.0); PO2(98.6) 57 mmHg (60-100); SAMPLE BLOOD; THB 15.8 g/dL (11.5-17.4); pH(98.6) 7.48 (7.35-7.45)
[2018-03-14 03:53] LABS: MODALITY BI PAP
[2018-03-14 03:54] LABS: PCO2(98.6) 69 mmHg (35-45)
[2018-03-14] MEDS ORDERED: VANCOMYCIN 2 GM in NS 500 ML IV SCH (05:00)
[2018-03-14] MEDS: CARDIZEM 100 MG in NS 80 ML IV SCH (05:27)
[2018-03-14 05:38] LABS: BASO# 0.02 X1000 (0.0-0.2); BASO% 0.2 % (0.0-0.8); EOS# 0.04 X1000 (0.0-0.7); EOS% 0.4 % (0.0-10.0); HEMATOCRIT 51.7 % (42.0-52.0); HEMOGLOBIN 14.7 g/dL (14.0-18.0); IMM GRAN# 0.04 X1000 (0.0-0.04); IMM GRAN% 0.4 % (0.0-0.5); LYMPH# 0.81 X1000 (1.2-3.4); LYMPH% 7.4 % (20.5-51.1); MCHC 28.4 g/dL (33-37); MONO# 2.76 X1000 (0.11-0.59); MONO% 25.3 % (1.7-9.3); MPV 10.7 FL (7.4-10.4); NEUT# 7.24 X1000 (1.4-6.5); NEUT% 66.3 % (42.2-75.2); PLT 132 X1000 (130-400); RBC 5.07 XMIL (4.7-6.1); RDW 15.2 % (11.5-14.5); WBC 10.91 X1000 (4.8-10.8)
[2018-03-14 05:55] LABS: ESTIMATED GFR > 60
[2018-03-14 06:00] LABS: AGAP 10; ALBUMIN 3.5 g/dL (3.5-5.0); BUN 20 mg/dL (8-22); CALCIUM 9.5 mg/dL (8.8-10.2); CHLORIDE 92 mmol/L (98-107); COSMO 292; GLUCOSE 118 mg/dL (70-104); PHOSPHORUS 1.5 mg/dL (2.7-4.5); POTASSIUM 4.5 mmol/L (3.5-5.1); SODIUM 145 mmol/L (136-145); TCO2 43 mmol/L (25-35)
[2018-03-14 06:28] LABS: BANDS 4 % (0-1); LYMPHS 6 % (21-51); MONO 16 % (1-9); SEGS 72 % (42-75)
[2018-03-14] MEDS ORDERED: LASIX IV ONE (07:05)
--- NOTE | 2018-03-14 07:10 | Diag Imaging Result Doc PS360 ---
EXAM: CHEST-1 VIEW 03/14/2018 HISTORY: pulmonary edema TECHNIQUE: AP portable at 0539 COMMENT: There is cardiomegaly and increased pulmonary vascularity. There is interstitial pulmonary edema. There has been no appreciable change since 03/13/2018 but there has been some improvement with respect to the basilar opacities compared to 03/12/2018. IMPRESSION: Pulmonary edema and cardiomegaly. Electronically signed by Db Virgen 03/14/2018 7:08 AM
[2018-03-14] MEDS: SYNTHROID IV SCH (08:28)
[2018-03-14] MEDS: MYCOSTATIN POWDER TOP SCH ×2 (08:28→19:59)
[2018-03-14] MEDS: LASIX IV SCH ×2 (08:29→19:59)
[2018-03-14] MEDS ORDERED: LOVENOX SUBQ SCH (09:00)
[2018-03-14] MEDS: LOPRESSOR IV PRN ×3 (11:50→22:28)
[2018-03-14] MEDS: PROTONIX IV SCH (13:08)
[2018-03-14] MEDS: SODIUM CHLORIDE 0.9% INJ SCH (13:09)
[2018-03-14] MEDS: LEVAQUIN 500 MG/D5W 500 MG/100 ML IVPB IV SCH (13:09)
--- NOTE | 2018-03-14 17:11 | PROGRESS NOTE ---
DATE: 03/14/2018 SUBJECTIVE: Patient progressively more alert. He denies shortness of breath or chest discomfort. He continues on supplemental oxygen per mask presently. OBJECTIVE: Vital Signs: Blood pressure 120/77, heart rate 130 and irregular with ECG monitor showing atrial fibrillation, oxygen saturation 100%. Neck: Jugular distention cannot be appreciated. Chest: Auscultation of the chest reveals bibasilar inspiratory crackles. Cardiac: Reveals an irregular tachycardia without appreciable murmur or gallop. Extremities: Demonstrate trace edema. LABORATORY DATA: Includes a white blood cell count 10.91, hematocrit 51.7, hemoglobin 14.7, platelet count 132,000. Sodium 145, potassium 4.5, chloride 92, carbon dioxide 43, BUN 20, creatinine 1.0, glucose 138. IMPRESSIONS: 1. Atrial fibrillation with rapid ventricular rate. 2. Hypercapnic/hypoxemic respiratory failure. Improving with diuresis for heart failure and treatment of obstructive sleep apnea, possible pneumonia. 3. Acute on chronic congestive heart failure with preserved left ventricular ejection fraction. Suspect a great deal of this may be related to acute on chronic right-sided heart failure. This has improved. 4. Status post previous cerebrovascular accident with left-sided weakness. 5. Hypertension. 6. Patient is do not resuscitate level 1. RECOMMENDATIONS: 1. Transition to oral Cardizem for rate control. 2. Continue as needed IV metoprolol. 3. Continue diuresis and follow up chest x-ray. cc: Thierry Taylor MD
[2018-03-14] MEDS ORDERED: ZYVOX 600 MG/D5W 600 MG/300 ML IVPB IV SCH (17:45)
[2018-03-14] MEDS: MAXIPIME 1 GM in NS 50 ML IV SCH (18:22)
--- NOTE | 2018-03-14 18:27 | PROGRESS NOTE ---
DATE: 03/14/2018 SUBJECTIVE: The patient is currently on BiPAP. He states that he feels okay. OBJECTIVE: Vital Signs: Temperature 99 degrees, blood pressure 112/70, heart rate 131, respirations 19, O2 saturation is 92% on non-rebreather. Urine output 1.5 L. General: This is a chronically ill-appearing, morbidly obese male lying in bed, in no acute distress. Heart: S1, S2 normal. Irregularly irregular rhythm. Lungs: Diminished breath sounds with crackles. Abdomen: Obese, soft, nontender. Extremities: There is 1+ edema. No cyanosis. No calf tenderness. Neurologic: The patient is alert and oriented. LABS: White blood cell count 10, hemoglobin 14, hematocrit 51, platelets 132,000. Sodium 145, potassium 4.5, chloride 92, CO2 43, BUN 20, creatinine 1, glucose 118, phosphorus 1.5. Chest x-ray shows pulmonary edema. ASSESSMENT AND PLAN: 1. Acute on chronic hypercapnic respiratory failure. Multifactorial. The patient has pulmonary edema. 2. Pulmonary edema. Management as per the non licensed nuclear equipment operator. 3. Morbid obesity. Aware. 4. Atrial fibrillation. The patient is on a Cardizem drip. Management as per the non licensed nuclear equipment operator. 5. Hypophosphatemia. Will replace the patient's phosphorus. 6. Hypothyroidism. Continue on Synthroid. 7. Chronic obstructive pulmonary disease. Continue with bronchodilator therapy and supplemental oxygen. 8. Deep vein thrombosis prophylaxis. The patient is on full-dose Lovenox. cc: Cheryl Jauregui MD
[2018-03-14] MEDS: CARDIZEM PO SCH (19:58)
[2018-03-14] MEDS: NEUTRA-PHOS PO SCH (19:59)
[2018-03-14] MEDS ORDERED: LOPRESSOR PO SCH (21:00)
[2018-03-14] MEDS ORDERED: TYLENOL PO PRN (21:30)
[2018-03-15] MEDS: CARDIZEM 100 MG in NS 80 ML IV SCH (00:35)
[2018-03-15] MEDS: LOPRESSOR IV PRN ×3 (02:30→18:03)
[2018-03-15] MEDS: CARDIZEM PO SCH ×4 (02:30→20:09)
[2018-03-15] MEDS: LOVENOX SUBQ SCH ×2 (03:23→20:10)
[2018-03-15] MEDS: CALMOSEPTINE OINTMENT TOP PRN (03:25)
[2018-03-15] MEDS: DUONEB (A & A) INH SCH ×6 (03:30→23:18)
[2018-03-15 04:02] LABS: ALLEN TEST YES; BE 22.4 mmoll (-3.0-3.0); BLOOD TYPE ARTERIAL; HCO3-(ACT) 42.3 mmoll (20.0-26.0); METHB 1.4 % (0.0-1.5); O2(CT) 21.1 mL/dL (15.0-23.0); PO2(98.6) 103 mmHg (60-100); SAMPLE BLOOD; THB 15.7 g/dL (11.5-17.4); pH(98.6) 7.41 (7.35-7.45)
[2018-03-15 04:04] LABS: MODALITY BI PAP; PCO2(98.6) 84 mmHg (35-45)
[2018-03-15] MEDS: MAXIPIME 1 GM in NS 50 ML IV SCH ×2 (04:12→18:02)
[2018-03-15] MEDS: SYNTHROID IV SCH (06:00)
[2018-03-15] MEDS: SODIUM CHLORIDE 0.9% INJ PRN (06:01)
[2018-03-15 06:19] LABS: AGAP 13; ALBUMIN 3.3 g/dL (3.5-5.0); BASO# 0.02 X1000 (0.0-0.2); BASO% 0.2 % (0.0-0.8); BUN 26 mg/dL (8-22); CHLORIDE 89 mmol/L (98-107); COSMO 291; CREATININE 0.9 mg/dL (0.7-1.2); EOS# 0.04 X1000 (0.0-0.7); EOS% 0.4 % (0.0-10.0); ESTIMATED GFR > 60; GLUCOSE 127 mg/dL (70-104); HEMOGLOBIN 14.7 g/dL (14.0-18.0); IMM GRAN# 0.05 X1000 (0.0-0.04); IMM GRAN% 0.5 % (0.0-0.5); LYMPH# 1.44 X1000 (1.2-3.4); LYMPH% 14.2 % (20.5-51.1); MCH 29.1 PG (27-31); MCHC 28.8 g/dL (33-37); MONO# 1.84 X1000 (0.11-0.59); MONO% 18.2 % (1.7-9.3); MPV 11.4 FL (7.4-10.4); NEUT# 6.73 X1000 (1.4-6.5); NEUT% 66.5 % (42.2-75.2); PHOSPHORUS 2.5 mg/dL (2.7-4.5); PLT 136 X1000 (130-400); POTASSIUM 3.6 mmol/L (3.5-5.1); RBC 5.05 XMIL (4.7-6.1); RDW 15.3 % (11.5-14.5); SODIUM 143 mmol/L (136-145); TCO2 41 mmol/L (25-35); WBC 10.12 X1000 (4.8-10.8)
[2018-03-15 06:43] LABS: EOS 2 % (1-10); LYMPHS 10 % (21-51); MONO 6 % (1-9); SEGS 82 % (42-75)
--- NOTE | 2018-03-15 07:34 | Diag Imaging Result Doc PS360 ---
EXAM: CHEST-PORTABLE HISTORY: pulmonary edema TECHNIQUE: Portable chest single view COMPARISON: 03/14/2018 FINDINGS: The lungs are well expanded. There is a small right pleural effusion. Interval decrease in the size of the left pleural effusion. Pulmonary edema is unchanged. There is right basilar atelectasis with possibly and underlying infiltrate. These are more pronounced. IMPRESSION: Mixed areas of improvement and worsening. Electronically signed by Noel Caldera 03/15/2018 7:31 AM
[2018-03-15] MEDS ORDERED: VANCOMYCIN IV PER PHARMACY MISC SCH (08:00)
--- NOTE | 2018-03-15 08:10 | Diag Imaging Result Doc PS360 ---
EXAM: CT ANGIOGRM PULMONARY ARTERIES INDICATION: rule out PE (angiogram with IV contrast) TECHNIQUE: This exam was performed using automated exposure control, adjustment of mA or kV according to patient size, and/or use of iterative reconstruction technique. Thin section axial images and 3-D MIPS were obtained. COMPARISON: None. FINDINGS: There is no evidence of pulmonary embolism. There is mild atherosclerotic calcification at the aortic arch. There is no evidence of aortic aneurysm or dissection. The heart is borderline to mildly prominent. There are a few shotty borderline and mildly prominent mediastinal and hilar lymph nodes that are probably reactive. There is advanced pulmonary emphysema. There are patchy airspace consolidations bilaterally consistent with pneumonia, most significant at the posterior aspect of the right upper lobe. There is also a component of subsegmental atelectasis at the lung bases. At the right lung apex, there is a nodule measuring 1.4 x 1.4 cm axially. It is likely faintly calcified. If so, it probably represents a calcified granuloma. However, it is nonspecific as the calcification is somewhat atypical. Follow-up is recommended based on Fleischner Society criteria with a repeat chest CT in 3 months. There is a similar 1.2 cm nodule at the right lung base that appears to have central calcification. There is a 0.5 cm noncalcified nodule in the right upper lobe on image 69 of series 5. There is no pleural fluid collection and no pneumothorax. Limited views of the upper abdomen are essentially unremarkable. IMPRESSION: 1.Fairly advanced pulmonary emphysema. 2.Bilateral patchy consolidation, most prominent in the right upper lobe indicating pneumonia, likely with a component of atelectasis at the lung bases. 3.A few pulmonary nodules on the right with the largest ones exhibiting likely faint calcification. Although likely granulomata, follow-up CT is recommended based on Fleischner Society criteria. Please see above discussion. 4.No evidence of pulmonary embolism. Electronically signed by Jose Tam 03/15/2018 8:08 AM
[2018-03-15] MEDS: LASIX IV SCH ×2 (08:16→20:10)
[2018-03-15] MEDS: NEUTRA-PHOS PO SCH ×4 (08:16→20:11)
[2018-03-15] MEDS: MYCOSTATIN POWDER TOP SCH ×2 (08:17→20:11)
--- NOTE | 2018-03-15 09:55 | PROGRESS NOTE ---
DATE: 03/15/2018 SUBJECTIVE: Patient progressively more awake. He is alert and oriented, and denies shortness of breath on supplemental oxygen, presently with 100% non-rebreather while he is trying to eat. There has been no chest pain. OBJECTIVE: Vital Signs: Blood pressure 123/69, heart rate 113 and irregular with ECG monitor showing atrial fibrillation. Oxygen saturation obtained earlier on BiPAP with 100% oxygen was 100%. Neck: Jugular venous distention cannot be appreciated. Chest: Fairly clear to auscultation. Cardiac: Reveals an irregular rate and rhythm without appreciable murmur or gallop. There is no evidence of peripheral edema. LABORATORY DATA: White blood cell count of 10.12, hematocrit 51.0, hemoglobin 14.7, platelet count 136,000. Sodium 143, potassium 3.6, chloride 89, carbon dioxide 41, BUN 26, creatinine 0.9. IMPRESSION: 1. Atrial fibrillation with mild increase in ventricular rate response on current therapy. Intravenous Cardizem is off. He is presently on oral Cardizem. 2. Hypercapnic/hypoxemic respiratory failure. This is improving with pulmonary toilet, treatment for congestive heart failure and treatment for chronic obstructive pulmonary disease, obstructive sleep apnea, and pneumonia. 3. Acute on chronic congestive heart failure with preserved left ventricular ejection fraction. Suspect a great deal of this is related to acute on chronic right-sided heart failure. Patient clinically improving with diuresis. 4. Status post previous cerebrovascular accident with left-sided weakness. 5. Hypertension. 6. Patient is do not resuscitate level 1. RECOMMENDATION: 1. Gently increase oral Cardizem for rate control. 2. Continue diuresis for now. 3. Continue anticoagulation with Lovenox. cc: Thierry Taylor MD
[2018-03-15] MEDS ORDERED: VANCOMYCIN 2,500 MG in NS 500 ML IV ONE (10:00)
[2018-03-15] MEDS: PROTONIX IV SCH (13:07)
[2018-03-15] MEDS: SOLU-MEDROL IV SCH ×2 (15:53→23:40)
[2018-03-15 15:54] LABS: ALLEN TEST NO; BE 20.1 mmoll (-3.0-3.0); BLOOD TYPE ARTERIAL; HCO3-(ACT) 40.4 mmoll (20.0-26.0); METHB 1.3 % (0.0-1.5); O2(CT) 20.7 mL/dL (15.0-23.0); O2HB 91.4 % (95.0-99.0); PO2(98.6) 67 mmHg (60-100); SAMPLE BLOOD; SAO2 94.6 % (95.0-100.0); THB 16.1 g/dL (11.5-17.4); pH(98.6) 7.43 (7.35-7.45)
[2018-03-15 15:56] LABS: MODALITY PRB; PCO2(98.6) 75 mmHg (35-45)
[2018-03-15] MEDS: OFIRMEV 1000 MG/ISOTONIC SOLN 1,000 MG/100 ML BOTTLE IV PRN (16:09)
--- NOTE | 2018-03-15 16:53 | Diag Imaging Result Doc PS360 ---
EXAM: CHEST-PORTABLE INDICATION: Acute Resp Distress TECHNIQUE: One view COMPARISON: 03/15/2018 FINDINGS: Pulmonary edema and pulmonary venous congestion is stable to marginally worse. No other new consolidations are identified. Cardiac silhouette is stable. IMPRESSION: Stable to marginal worsening of pulmonary edema. Electronically signed by Jose Tam 03/15/2018 4:51 PM
[2018-03-15 17:13] LABS: BASO# 0.02 X1000 (0.0-0.2); BASO% 0.2 % (0.0-0.8); EOS# 0.04 X1000 (0.0-0.7); EOS% 0.3 % (0.0-10.0); HEMOGLOBIN 14.8 g/dL (14.0-18.0); IMM GRAN# 0.06 X1000 (0.0-0.04); IMM GRAN% 0.5 % (0.0-0.5); LYMPH# 1.13 X1000 (1.2-3.4); LYMPH% 9.9 % (20.5-51.1); MCH 28.7 PG (27-31); MCHC 28.5 g/dL (33-37); MCV 100.8 FL (81-99); MONO# 1.77 X1000 (0.11-0.59); MONO% 15.5 % (1.7-9.3); MPV 10.8 FL (7.4-10.4); NEUT# 8.42 X1000 (1.4-6.5); NEUT% 73.6 % (42.2-75.2); PLT 141 X1000 (130-400); RBC 5.16 XMIL (4.7-6.1); RDW 15.2 % (11.5-14.5); WBC 11.44 X1000 (4.8-10.8)
[2018-03-15] MEDS ORDERED: D50W SYRINGE IV PRN (17:24)
[2018-03-15 17:37] LABS: INR 1.12; PROTIME 15.3 Seconds (11.0-16.0); PTT 37.2 Seconds (22.3-41.8)
[2018-03-15] MEDS ORDERED: NS 500 ML IV ONE (17:38)
[2018-03-15 17:39] LABS: URINE SOURCE CATH
[2018-03-15 17:43] LABS: BANDS 4 % (0-1); LYMPHS 14 % (21-51); MONO 8 % (1-9); SEGS 73 % (42-75)
[2018-03-15 17:46] LABS: BILIRUBIN URINE NEGATIVE (NEGATIVE); BLOOD URINE MODERATE (NEGATIVE); COLOR YELLOW; GLUCOSE URINE NEGATIVE (NEGATIVE); KETONE URINE 10 mg/dL (NEGATIVE); LEUKOCYTES URINE TRACE (NEGATIVE); NITRITE URINE NEGATIVE (NEGATIVE); PROTEIN URINE 100 mg/dL (NEGATIVE); SP GRAVITY URINE 1.039; TURBIDITY URINE HAZY (CLEAR); UR EPITHELIAL CELLS <10 /HPF (<10); URINE BACTERIA NEGATIVE /HPF; URINE RBC TNTC /HPF (<10); URINE WBC <10 /HPF (<10); UROBILINOGEN URINE 2 mg/dL (NORMAL)
[2018-03-15 18:03] LABS: AGAP 12; ALB/GLOB RATIO 1.6; ALBUMIN 3.9 g/dL (3.5-5.0); ALKALINE PHOSPHATASE 50 U/L (32-122); BUN 24 mg/dL (8-22); CALCIUM 8.6 mg/dL (8.8-10.2); CHLORIDE 88 mmol/L (98-107); CK PROFILE 522 U/L (24-204); COSMO 287; CREATININE 1.1 mg/dL (0.7-1.2); ESTIMATED GFR > 60; GLUCOSE 130 mg/dL (70-104); GOT 34 U/L (10-34); GPT 19 U/L (10-44); POTASSIUM 4.2 mmol/L (3.5-5.1); SODIUM 141 mmol/L (136-145); TCO2 41 mmol/L (25-35); TOTAL BILIRUBIN 1.21 mg/dL (0.20-1.00); TOTAL PROTEIN 6.4 g/dL (6.3-8.3)
[2018-03-15 18:32] LABS: CK INDEX 0.5 (0.0-2.5); CK-MB 2.45 ng/mL (0.0-5.0)
[2018-03-15] MEDS: LEVAQUIN 500 MG in NS 100 ML IV SCH (19:57)
[2018-03-15] MEDS: HUMULIN R SUBQ SCH (20:10)
--- NOTE | 2018-03-15 20:12 | PROGRESS NOTE ---
DATE: 03/15/2018 SUBJECTIVE: The patient is currently on BiPAP. He was febrile overnight with a T-max of 102. OBJECTIVE: Vital Signs: Temperature 102.2, blood pressure 125/77, heart rate 137, respirations 20, O2 sats 96% on BiPAP. Urine output 2.4 L. General: This is a morbidly obese male lying in bed in no acute distress. Heart: S1, S2 normal. Irregularly irregular rhythm. Lungs: Diminished breath sounds at the bases. No wheezing. No rales. Abdomen: Obese. Positive bowel sounds. Soft, nontender. Extremities: 1+ edema. No cyanosis. No calf tenderness. Neurologic: The patient is alert and oriented. LABS: White blood cell count 11, hemoglobin 14, hematocrit 52, platelets 141, 000. Sodium 141, potassium 4.2, chloride 88, CO2 41, BUN 24, creatinine 1.1, glucose 130, phosphorus 2.5. AST 34, ALT 19, alkaline phosphatase 50, CK 522. Chest x-ray: Pulmonary edema and pulmonary vascular congestion. No new consolidations. ASSESSMENT AND PLAN: 1. Acute on chronic hypoxemic and hypercapnic respiratory failure. The patient has pulmonary edema and is in atrial fibrillation with rapid ventricular response. 2. Acute pulmonary edema. Continue with diuretic therapy as directed by the solar electric installer. 3. Acute on chronic systolic CHF exacerbation. Management as per the solar electric installer. 4. Fever. The patient is on broad-spectrum antibiotics. Blood cultures have been repeated again. We will also check a procalcitonin level. Continue with bronchodilator therapy. 5. COPD exacerbation. We will add Solu-Medrol and continue with bronchodilator therapy. 6. Morbid obesity. Aware. 7. Atrial fibrillation. Management as per the solar electric installer. 8. Hypothyroidism. Continue on Synthroid. 9. DVT prophylaxis. Continue on Lovenox. 10. Disposition. The patient's clinical condition is worsening. The patient is currently a DNR level 1. cc: MD YANNA Moralez
[2018-03-16] MEDS: OFIRMEV 1000 MG/ISOTONIC SOLN 1,000 MG/100 ML BOTTLE IV PRN (02:25)
[2018-03-16] MEDS: DUONEB (A & A) INH SCH ×5 (03:12→23:40)
[2018-03-16] MEDS: CARDIZEM PO SCH ×3 (04:50→21:32)
[2018-03-16] MEDS: MAXIPIME 1 GM in NS 50 ML IV SCH ×2 (04:50→16:46)
[2018-03-16 05:33] LABS: BASO# 0.01 X1000 (0.0-0.2); BASO% 0.2 % (0.0-0.8); HEMATOCRIT 49.3 % (42.0-52.0); HEMOGLOBIN 14.3 g/dL (14.0-18.0); IMM GRAN# 0.04 X1000 (0.0-0.04); IMM GRAN% 0.6 % (0.0-0.5); LYMPH# 0.33 X1000 (1.2-3.4); LYMPH% 5.1 % (20.5-51.1); MONO# 0.31 X1000 (0.11-0.59); MONO% 4.8 % (1.7-9.3); NEUT# 5.81 X1000 (1.4-6.5); NEUT% 89.3 % (42.2-75.2); PLT 143 X1000 (130-400); RBC 4.93 XMIL (4.7-6.1)
[2018-03-16 05:41] LABS: AGAP 13; ALBUMIN 3.5 g/dL (3.5-5.0); BUN 31 mg/dL (8-22); CALCIUM 8.4 mg/dL (8.8-10.2); CHLORIDE 92 mmol/L (98-107); COSMO 295; CREATININE 1.1 mg/dL (0.7-1.2); ESTIMATED GFR > 60; GLUCOSE 162 mg/dL (70-104); PHOSPHORUS 1.8 mg/dL (2.7-4.5); POTASSIUM 4.1 mmol/L (3.5-5.1); SODIUM 143 mmol/L (136-145); TCO2 38 mmol/L (25-35)
[2018-03-16 05:49] LABS: ALLEN TEST YES; BE 17.8 mmoll (-3.0-3.0); BLOOD TYPE ARTERIAL; HCO3-(ACT) 38.7 mmoll (20.0-26.0); METHB 1.3 % (0.0-1.5); O2(CT) 20.3 mL/dL (15.0-23.0); O2HB 94.8 % (95.0-99.0); PO2(98.6) 84 mmHg (60-100); SAMPLE BLOOD; SAO2 97.5 % (95.0-100.0); THB 15.2 g/dL (11.5-17.4); pH(98.6) 7.45 (7.35-7.45)
[2018-03-16 05:58] LABS: MODALITY BI PAP; PCO2(98.6) 66 mmHg (35-45)
[2018-03-16] MEDS: SODIUM CHLORIDE 0.9% INJ PRN (05:59)
[2018-03-16] MEDS: HUMULIN R SUBQ SCH ×4 (05:59→22:21)
[2018-03-16] MEDS: SYNTHROID IV SCH (06:00)
--- NOTE | 2018-03-16 08:23 | Diag Imaging Result Doc PS360 ---
EXAM: CHEST-PORTABLE 03/16/2018 HISTORY: pneumonia/pulmonary edema TECHNIQUE: AP portable at 0555 COMMENT: There is a left pleural effusion. There is patchy alveolar and interstitial opacity bilaterally particularly in the inferior portion of the right upper lobe. Compared to the previous study of 03/15/2018 the left hemidiaphragm is more obscured laterally. IMPRESSION: Worsened pulmonary edema versus pneumonia left lower lobe. Electronically signed by Db Virgen 03/16/2018 8:21 AM
[2018-03-16] MEDS: LASIX IV SCH ×2 (09:41→21:33)
[2018-03-16] MEDS: LOVENOX SUBQ SCH ×2 (09:41→21:33)
[2018-03-16] MEDS: SOLU-MEDROL IV SCH ×2 (09:42→16:46)
[2018-03-16] MEDS: MYCOSTATIN POWDER TOP SCH (09:42)
[2018-03-16] MEDS: VANCOMYCIN 2,000 MG in NS 500 ML IV SCH (09:42)
[2018-03-16] MEDS: PROTONIX IV SCH (12:56)
[2018-03-16] MEDS ORDERED: MORPHINE IV PRN (15:34)
[2018-03-16] MEDS ORDERED: NS 500 ML ONE (16:30)
--- NOTE | 2018-03-16 17:37 | PROGRESS NOTE ---
DATE: 03/16/2018 SUBJECTIVE: The patient is resting comfortably in bed. He is currently on BiPAP. He is off the Cardizem drip. OBJECTIVE: Vital Signs: Temperature 98.2 degrees, blood pressure 105/97, heart rate 113, respirations 22, O2 saturation is 93% on a non-rebreather mask. Urine output 1.4 L. General: This is a morbidly obese male, resting comfortably on BiPAP. Head: Normocephalic, atraumatic. Heart: S1, S2 normal. Tachycardic. Lungs: Diminished breath sounds at the bases. Coarse breath sounds. Abdomen: Distended. Hypoactive bowel sounds. Extremities: There is 1+ edema bilaterally. Neurologic: The patient is alert and oriented. LABS: White blood cell count 6.5, hemoglobin 14, hematocrit 49, platelets 143,000. ABG, pH of 7.45, pCO2 66, PO2 84. Sodium 143, potassium 4.1, chloride 92, CO2 38, BUN 31, creatinine 1.1, glucose 162, phosphorus 1.8. ASSESSMENT AND PLAN: 1. Acute hypoxemic and hypercapnic respiratory failure. The patient has pulmonary edema and suspected pneumonia. Continue with BiPAP support as well as antibiotics and diuretic therapy. 2. Pneumonia. Continue with IV antibiotics. 3. Acute congestive heart failure exacerbation with pulmonary edema. Continue with diuretic therapy as directed by the columnist. 4. Paroxysmal atrial fibrillation. The patient is off the Cardizem drip and is on oral Cardizem. We will continue to monitor the patient closely. 5. Chronic obstructive pulmonary disease exacerbation. Continue on IV Solu-Medrol, bronchodilator therapy, and supplemental oxygen. 6. Morbid obesity. Aware. 7. Constipation. Will start the patient on scheduled laxative therapy. 8. Hypothyroidism. Continue on Synthroid. 9. Deep vein thrombosis prophylaxis. Continue on Lovenox. 10. Disposition. The patient is a DNR level 1. cc: Cheryl Jauregui MD
[2018-03-16] MEDS: NEUTRA-PHOS PO SCH ×2 (17:58→21:33)
--- NOTE | 2018-03-16 20:29 | PROGRESS NOTE ---
DATE: 03/16/2018 CARDIOLOGY FOLLOWUP NOTE: SUBJECTIVE: The patient had some difficulty overnight with increased shortness of breath, but is feeling better today. He denies shortness of breath on supplemental oxygen. There has been no chest pain. OBJECTIVE: Vital Signs: Blood pressure 112/79, heart rate 118, oxygen saturation 100%. HEENT: Mucous membranes moist. Neck: Supple. Jugular venous distention is difficult to appreciate. Chest: Clear to auscultation anteriorly. There are a few inspiratory crackles in the bases. Cardiac: Reveals an irregular rate and rhythm, without appreciable murmur or gallop. Extremities: Without edema. LABORATORY DATA: Includes white blood cell count 6.5, hematocrit 49.3, hemoglobin 14.3, platelet count 143,000. Sodium 143, potassium 4.1, chloride 92, carbon dioxide 38, BUN 31, creatinine 1.1, glucose 162. IMPRESSION: 1. Atrial fibrillation with mildly elevated ventricular rate response despite current therapy. 2. Hypercapnic/hypoxemic respiratory failure. This is improving with pulmonary toilet, treatment for congestive heart failure which is probably right-sided, treatment for COPD, treatment for obstructive sleep apnea, and treatment for suspected pneumonia. 3. Acute on chronic congestive heart failure with preserved left ventricular ejection fraction. This is predominantly right-sided congestive heart failure and is improving with diuresis. 4. Status post previous cerebrovascular accident with left-sided weakness. 5. Hypertension. 6. The patient is do not resuscitate, level 1. RECOMMENDATIONS: 1. Add low-dose metoprolol. 2. Continue diuresis and consider reducing Lasix tomorrow. 3. Continue anticoagulation with Lovenox. Ultimately, would consider transitioning patient to Eliquis. cc: Thierry Taylor MD [facility]
[2018-03-16] MEDS ORDERED: DULCOLAX PR SCH (21:00)
[2018-03-16] MEDS: LEVAQUIN 500 MG in NS 100 ML IV SCH (21:32)
[2018-03-16] MEDS: LOPRESSOR PO SCH (21:33)
[2018-03-16] MEDS: MIRALAX PO SCH (21:33)
[2018-03-16] MEDS: COLACE PO SCH (21:36)
--- NOTE | 2018-03-16 21:50 | Diag Imaging Result Doc PS360 ---
EXAM: ABDOMEN FLAT/UPRIGHT 03/16/2018 HISTORY: constipation TECHNIQUE: AP flat and upright sitting COMMENT: There is gas throughout the colon with stool in the rectum. The stomach and small bowel are not particularly distended. There is no evidence of organomegaly or mass. IMPRESSION: Constipation. Electronically signed by Db Virgen 03/16/2018 9:47 PM
[2018-03-17] MEDS: MYCOSTATIN POWDER TOP SCH ×3 (00:37→23:52)
[2018-03-17] MEDS: LEVAQUIN 500 MG in NS 100 ML IV SCH (00:41)
[2018-03-17] MEDS: SOLU-MEDROL IV SCH ×3 (00:42→16:08)
[2018-03-17] MEDS: DUONEB (A & A) INH SCH ×5 (02:39→16:06)
[2018-03-17] MEDS: MAXIPIME 1 GM in NS 50 ML IV SCH ×2 (05:17→16:10)
[2018-03-17] MEDS: CARDIZEM PO SCH ×2 (05:17→12:36)
[2018-03-17 05:31] LABS: ALLEN TEST YES; BE 15.4 mmoll (-3.0-3.0); BLOOD TYPE ARTERIAL; HCO3-(ACT) 36.8 mmoll (20.0-26.0); O2(CT) 18.5 mL/dL (15.0-23.0); O2HB 92.1 % (95.0-99.0); PO2(98.6) 67 mmHg (60-100); SAMPLE BLOOD; THB 14.3 g/dL (11.5-17.4)
[2018-03-17 05:32] LABS: MODALITY BI PAP
[2018-03-17 05:35] LABS: PCO2(98.6) 71 mmHg (35-45)
[2018-03-17 06:36] LABS: HEMATOCRIT 47.5 % (42.0-52.0); MCH 29.4 PG (27-31); MCHC 29.5 g/dL (33-37); MCV 99.8 FL (81-99); MPV 11.7 FL (7.4-10.4); RBC 4.76 XMIL (4.7-6.1); RDW 14.8 % (11.5-14.5); WBC 10.01 X1000 (4.8-10.8)
[2018-03-17] MEDS: SYNTHROID IV SCH (06:55)
[2018-03-17 07:05] LABS: AGAP 14; ALBUMIN 3.5 g/dL (3.5-5.0); BUN 41 mg/dL (8-22); CALCIUM 7.9 mg/dL (8.8-10.2); CHLORIDE 88 mmol/L (98-107); COSMO 292; CREATININE 1.1 mg/dL (0.7-1.2); ESTIMATED GFR > 60; GLUCOSE 141 mg/dL (70-104); PHOSPHORUS 2.4 mg/dL (2.7-4.5); POTASSIUM 3.3 mmol/L (3.5-5.1); SODIUM 140 mmol/L (136-145); TCO2 38 mmol/L (25-35)
--- NOTE | 2018-03-17 07:17 | Diag Imaging Result Doc PS360 ---
EXAM: CHEST-PORTABLE 03/17/2018 HISTORY: pneumonia/pulmonary edema TECHNIQUE: AP portable at 0609 COMMENT: There are platelike atelectatic changes present in both lung bases and there is alveolar opacification in the right upper lobe. Compared to 03/16/2018, there has been clearing of the left lower lobe and the opacity in the right upper lobe has improved. IMPRESSION: Improved pulmonary edema and/or pneumonia. Improved left pleural effusion. Electronically signed by Db Virgen 03/17/2018 7:15 AM
[2018-03-17] MEDS ORDERED: KLOR-CON PO ONE (07:44)
[2018-03-17] MEDS: NEUTRA-PHOS PO SCH ×2 (08:31→12:35)
[2018-03-17] MEDS: COLACE PO SCH (08:31)
[2018-03-17] MEDS: MIRALAX PO SCH (08:31)
[2018-03-17] MEDS: LOPRESSOR PO SCH (08:31)
[2018-03-17] MEDS: LOVENOX SUBQ SCH (08:31)
[2018-03-17] MEDS: HUMULIN R SUBQ SCH ×2 (08:41→12:28)
[2018-03-17] MEDS ORDERED: LASIX IV SCH (09:00)
[2018-03-17] MEDS: VANCOMYCIN 2,000 MG in NS 500 ML IV SCH (09:32)
[2018-03-17 12:11] LABS: ALLEN TEST YES; BE 14.3 mmoll (-3.0-3.0); BLOOD TYPE ARTERIAL; HCO3-(ACT) 35.8 mmoll (20.0-26.0); METHB 0.9 % (0.0-1.5); O2(CT) 18.6 mL/dL (15.0-23.0); PO2(98.6) 59 mmHg (60-100); SAMPLE BLOOD; SAO2 92.3 % (95.0-100.0); THB 14.8 g/dL (11.5-17.4); pH(98.6) 7.41 (7.35-7.45)
[2018-03-17 12:13] LABS: MODALITY PRB
[2018-03-17 12:15] LABS: O2HB 89.6 % (95.0-99.0); PCO2(98.6) 67 mmHg (35-45)
[2018-03-17] MEDS: SODIUM CHLORIDE 0.9% INJ SCH (12:35)
[2018-03-17] MEDS: PROTONIX IV SCH (12:36)
--- NOTE | 2018-03-17 14:48 | PROGRESS NOTE ---
DATE: 03/17/2018 SUBJECTIVE: The patient is resting in bed. He still has a very tenuous respiratory status requiring BiPAP during the day. OBJECTIVE: Vital Signs: Temperature 97.6 degrees, blood pressure 122/87, heart rate 108, respirations 20, O2 saturations 98% on non-rebreather. Urine output 01.2 liters. General: This is a chronically ill-appearing, elderly male lying in bed. Heart: S1, S2 normal. Lungs: Coarse breath sounds bilaterally. Abdomen: Distended. Positive bowel sounds. Extremities: 1+ edema. Neurologic: The patient is confused. LABS: White blood cell count 10, hemoglobin 14, hematocrit 47, platelets 141. Sodium 140, potassium 3.3, chloride 88, CO2 38. BUN 41, creatinine 1.1, glucose 141, phosphorus 2.4, calcium 7.9. X-RAYS: Chest x-ray shows improved pulmonary edema and pneumonia. ASSESSMENT AND PLAN: 1. Acute hypoxemic and hypercapnic respiratory failure. Continue to cycle BiPAP and a non- rebreather mask. Continue to treat the underlying pneumonia and pulmonary edema. 2. Pneumonia. Continue with intravenous antibiotic therapy. 3. Acute systolic congestive heart failure exacerbation with pulmonary edema. Continue management as per the software designer. 4. Paroxysmal atrial fibrillation. Continue on oral Cardizem. 5. Chronic obstructive pulmonary disease exacerbation. Continue on intravenous steroids, bronchodilator therapy and supplemental oxygen. 6. Morbid obesity. Aware. 7. Sacral ulceration. Wound Care has been consulted. 8. Constipation. Continue with laxative therapy. 9. Hypothyroidism. Continue on Synthroid. 10. Deep vein thrombosis prophylaxis. The patient is on full-dose Lovenox. 11. Disposition: The patient has a poor prognosis. The patient is currently a [id number] level 1. The patient is a resident of [facility]. cc: Cheryl Jauregui MD
[2018-03-17] MEDS: ATIVAN IV PRN ×3 (15:48→23:52)
[2018-03-17] MEDS ORDERED: ATROPINE 1 % OPHTH SOLN SL PRN (16:07)
[2018-03-17] MEDS ORDERED: TRANSDERM-SCOP TD SCH (16:15)
[2018-03-17] MEDS ORDERED: CALMOSEPTINE OINTMENT TOP PRN (18:19)
[2018-03-17] MEDS: CALMOSEPTINE OINTMENT TOP PRN (20:06)
--- NOTE | 2018-03-18 04:02 | PULMONOLOGY PROGRESS NOTE ---
DATE: 03/17/2018 SUBJECTIVE: The patient is awake, alert, and confused. The patient believes he is currently at his house/apartment, and that his cousin is at his bedside. The person at his bedside is actually his ex-. She reports he has a long history of alcohol use, drug use, and tobacco use, and has had significant dementia for over a year. OBJECTIVE: Vital Signs: The patient has been afebrile for the last 24 hours. Blood pressure 122/69, heart rate 106, respiratory rate 20, oxygen saturation 94% on non-rebreather. HEENT: Pupils are equal and reactive. Oropharynx is clear. Neck: Supple. Chest: Reveals prolonged expiratory phase, with basilar crackles. Cardiac: S1-S2. Abdomen: Obese and soft. Extremities: Revealed chronic vascular insufficiency. LABORATORIES: Chest x-ray reveals partial improvement of pulmonary edema and/or pneumonia, with decreased left-sided effusion. Arterial blood gas reveals a pH of 7.41, pCO2 of 67, PO2 of 59 on a non-rebreather. White blood count 10.01, hemoglobin 14.0, platelet count 141,000. No new culture data. IMPRESSION: A 63-year-old with chronic obstructive pulmonary disease, hypercapnic respiratory failure, which appears chronic, acute hypoxemic respiratory failure, pneumonia, dementia, obesity, with atrial fibrillation. He is marginally improved, but remains ill. RECOMMENDATIONS: 1. Attempt to balance intake and output as tolerated. His BUN is climbing, so additional diuresis may be difficult. 2. Continue broad-spectrum antibiotics. 3. Cycle BiPAP for oxygen as needed for hypoxemic respiratory failure. 4. Prognosis is poor. End of life discussions have been addressed. cc: Kirby Peterson MD
[2018-03-18] MEDS: ATIVAN IV PRN ×2 (05:05→19:43)
[2018-03-18] MEDS: MORPHINE IV PRN ×3 (08:08→23:02)
[2018-03-18] MEDS: MYCOSTATIN POWDER TOP SCH ×2 (16:38→23:03)
[2018-03-18 19:31] VITALS: BP 119/60
--- NOTE | 2018-03-18 23:51 | PROGRESS NOTE ---
DATE: 03/18/2018 SUBJECTIVE: The patient is resting comfortably in bed. His family is present at his bedside. OBJECTIVE: Vital Signs: Temperature 98.4 degrees, blood pressure 106/69, heart rate 120, respirations 32, oxygen saturation 90% on a nonrebreather. General: This is a chronically ill- appearing male, lying in bed, in no acute distress. Heart: S1, S2 normal. Tachycardic. Lungs: Coarse breath sounds bilaterally. Abdomen: Quite distended. Obese. Positive bowel sounds. Extremities: 1+ edema. Neurologic: The patient is awake, but confused. ASSESSMENT: 1. Acute hypoxemic and hypercapnic respiratory failure. 2. Pneumonia. 3. Acute systolic congestive heart failure exacerbation. 4. Pulmonary edema. 5. Paroxysmal atrial fibrillation. 6. Chronic obstructive pulmonary disease exacerbation. 7. Morbid obesity. 8. Constipation. 9. Hypothyroidism. 10. Sacral ulceration. PLAN: Continue with comfort measures. The patient's family was updated at the bedside. cc: Cheryl Jauregui MD
[2018-03-19] MEDS: MORPHINE IV PRN ×2 (01:13→04:40)
[2018-03-19] MEDS: ATIVAN IV PRN (03:22)
--- NOTE | 2018-03-19 07:26 | PULMONOLOGY PROGRESS NOTE ---
DATE: 03/18/2018 SUBJECTIVE: The patient is awake, alert, conversant, and disoriented. He appears to be comfortable. OBJECTIVE: Vital Signs: Heart rate 120, respiratory rate 28, oxygen saturation 90% on nonrebreather. HEENT: Pupils are equal and reactive. Oropharynx is clear. Neck: Supple. Chest: Reveals markedly diminished breath sounds bilaterally with scattered wheezing. Cardiac Examination: S1-S2. Abdomen: Soft and no hepatosplenomegaly. Extremities: Without edema. Laboratories: No new chemistry or CBC. IMPRESSION: A 63-year-old with chronic obstructive pulmonary disease, chronic obstructive pulmonary disease exacerbation, hypercapnic respiratory failure, acute hypoxemic respiratory failure, pneumonia, dementia, obesity, and atrial fibrillation. There is little policy change clerk the last 24 hours. RECOMMENDATIONS: 1. Continue current treatment regimen. 2. Palliative care discussions in progress. The patient may be transitioned to comfort measures only. cc: Kirby Peterson MD
--- NOTE | 2018-04-09 08:29 | DISCHARGE SUMMARY ---
ADMISSION DATE: 03/12/2018 DISCHARGE DATE: 03/19/2018 FINAL DISCHARGE DIAGNOSES: 1. Acute hypoxemic and hypercapnic respiratory failure. 2. Pneumonia. 3. Acute systolic congestive heart failure exacerbation. 4. Pulmonary edema. 5. Paroxysmal atrial fibrillation. 6. Chronic obstructive pulmonary disease exacerbation. 7. Morbid obesity. 8. Constipation. 9. Hypothyroidism. 10. Sacral ulceration. CONSULTATIONS: 1. Pulmonary consultation with Dr. Meléndez. 2. Cardiology consultation with Dr. Taylor. 3. Nephrology consultation with Dr. Teresa. HOSPITAL COURSE: Mr. Odonnell is a 63-year-old male with a history of multiple medical problems who initially presented to the ER in respiratory failure. On admission a chest x-ray was done that revealed pulmonary edema as well as a possible underlying pneumonia. The patient was admitted to the hospitalist service and cardiology as well as pulmonary medicine were consulted for assistance with management. Blood and sputum cultures were obtained and the patient was started on broad- spectrum antibiotics and diuretic therapy. The patient had 1 blood culture that grew out Staphylococcus hemolyticus. Despite aggressive management and treatment, the patient's condition continued to deteriorate. This was discussed with the patient's family and they opted to make the patient a DNR level 1 with comfort measures only. On March 19, 2018 at 5:40 a.m. the patient was pronounced . The patient's family was notified of the patient's . cc: Cheryl Jauregui MD
== END 2018-03-19 05:40 | disposition expired | DRG 189 ==
LOC: SUPCPDRO → ED 08:12 → SUATTDRO 10:41 → EDIPHOLD 10:41 → 3S 03-13 12:06 → 4N 03-16 13:54
PROVIDERS: ATTEND Internal Medicine
CPT/HCPCS: 51702; 71010; 71045; 71275; 74019; 74020; 76770; 80048; 80053; 80069; 80101; 80164; 80165; 80301; 80307; 80320; 80324; 80345; 80346; 80353; 80358; 80361; 80365; 81001; 82055; 82550; 82553; 82570; 82805; 82948; 83605; 83735; 83880; 83992; 84100; 84132; 84145; 84156; 84300; 84436; 84443; 84484; 85025; 85027; 85379; 85610; 85730; 87040; 87088; 87186; 93005; 93010; 93306; 94640; 94660; 94761; 94762; 96374; 96375; 96376; 99285; 99291; A9270; C8929; C9113; G0431; G0434; G0479; G0480; G6040; J0131; J0610; J0692; J0696; J1644; J1650; J1940; J1956; J2020; J2060; J2270; J2310; J2370; J2543; J2930; J3370; J7040; J7050; Q9957; Q9967; S0164; XXXXX